=== PATIENT | male | born 1970 ===

== ENCOUNTER 2019-10-19 10:59 | Emergency (ER) | payer OTHER ==
--- NOTE | 2019-10-19 11:08 | EDM.PDOC ---
ED HPI GENERAL MEDICAL PROBLEM - General Chief Complaint: Upper Extremity Injury/Pain Stated Complaint: BROKEN ARM??FELL DOWN STEPS Time Seen by Provider: 10/19/19 11:06 Source of Information: Reports: Patient, Old Records, RN, RN Notes Reviewed History Limitations: Reports: No Limitations - History of Present Illness INITIAL COMMENTS - FREE TEXT/NARRATIVE: Pt presents to ER from home by POV with c/o that he fell down the stairs yesterday (10/18/19) and injured his right shoulder and upper arm. He came to the ER today because the pain did not go away, so he became concerned that he might have broke the bone. Denies any other injury, head injury, LOC, or neck pain. Onset: Sudden Onset Date: 10/18/19 Duration: Constant Location: Reports: Upper Extremity, Right Quality: Reports: Ache Severity: Severe Improves with: Reports: Immobilization Worsens with: Reports: Movement Context: Reports: Other (Fall) Right Shoulder Pain Score (Numeric/FACES): 7 - Related Data Allergies Allergy/AdvReac Type Severity Reaction Status Date / Time No Known Allergies Allergy Verified 10/19/19 11:11 Home Meds: Home Meds levETIRAcetam [Keppra] 500 mg PO DAILY 11/16/14 [History] Past Medical History Neurological History: Reports: Seizure Psychiatric History: Reports: Addiction Social & Family History - Family History Family Medical History: Noncontributory - Alcohol Use Alcohol Use History: Yes Alcohol Use Frequency: Binges - Living Situation & Occupation Living situation: Reports: with Family Occupation: Unemployed Review of Systems - Review of Systems Review Of Systems: Comprehensive ROS is negative, except as noted in HPI. ED EXAM, GENERAL - Physical Exam Exam: See Below Exam Limited By: No Limitations General Appearance: Alert, WD/WN, No Apparent Distress Throat/Mouth: Normal Voice, No Airway Compromise Head: Atraumatic, Normocephalic Neck: Normal Inspection, Non-Tender, Full Range of Motion Respiratory/Chest: No Respiratory Distress Cardiovascular: Normal Peripheral Pulses Peripheral Pulses: 3+: Radial (L), Radial (R) Back Exam: Normal Inspection, Full Range of Motion Extremities: Normal Capillary Refill, Arm Pain (Tender to palpation of anterior Rt shoulder and anterior/medial upper arm with redness, soft tissue swelling, and bruising to the proximal medial upper arm. No visible deformity. Skin is intact.). No: Joint Swelling Neurological: Alert, Oriented, Normal Gait, No Motor/Sensory Deficits Psychiatric: Normal Mood Skin Exam: Warm, Dry, Intact ED TRAUMA EXTREMITY PROCEDURES - Splinting Right Upper Extremity Splint Site: Rt Upper Arm Pre-Procedure NV Status: Normal Post-Procedure NV Status: Normal Splint Material: Fiberglass Splint Design: Sugar Tong Applied & Form Fitted By: Provider Provider Post-Splint Application NV Check: NV Status Normal, Good Position Complications: No Course - Vital Signs Last Recorded V/S: Last Vital Signs Temp 97.1 F 10/19/19 11:08 Pulse 105 H 10/19/19 11:08 Resp 18 10/19/19 11:08 BP 168/111 H 10/19/19 11:08 Pulse Ox 96 10/19/19 11:08 - Orders/Labs/Meds Orders: Active Orders 24 hr Category Date Time Status Peripheral IV Care [RC] . DIRECTED Care 10/19/19 11:46 Active Sodium Chloride 0.9% [Saline Flush] Med 10/19/19 11:46 Active 10 ml FLUSH ASDIRECTED PRN Peripheral IV Insertion Adult [OM.PC] Stat Oth 10/19/19 11:45 Ordered Medication Orders Sodium Chloride (Saline Flush) 10 ml FLUSH ASDIRECTED PRN PRN Reason: Keep Vein Open Meds: Medications Generic Name Dose Route Start Last Admin Trade Name Freq PRN Reason Stop Dose Admin Sodium Chloride 10 ml 10/19/19 11:46 Saline Flush FLUSH ASDIRECTED PRN Keep Vein Open Discontinued Medications Generic Name Dose Route Start Last Admin Trade Name Freq PRN Reason Stop Dose Admin Hydromorphone HCl 1 mg 10/19/19 11:46 Dilaudid IVPUSH 10/19/19 11:47 ONETIME ONE Ketorolac Tromethamine 60 mg 10/19/19 11:09 10/19/19 11:22 Toradol IM 10/19/19 11:10 60 mg ONETIME ONE Administration Ondansetron HCl 4 mg 10/19/19 11:46 Zofran IV 10/19/19 11:47 ONETIME ONE - Radiology Interpretation Free Text/Narrative:: [facility] Final Radiology Report Call: [phone] assistance Online chat: [email or web address] Name: MATTIE OLEARY Age: 49Years M Date: 10/19/2019 SSN: -- : [id number] Study: CR SHOULDER COMP RT Requesting Physician: SHEILA STOVER Images: 2 Addl Studies: Provided Clinical History: Rt shoulder upper arm pain s/p fall down stairs Contrast: Contrast Medium: Contrast Amount: Contrast Method: CONFIDENTIALITY STATEMENT This report is intended only for use by the referring physician, and only in accordance with law. If you received this in error, call [phone]. Page 1 of 1 PROCEDURE INFORMATION: Exam: XR Right Shoulder Exam date and time: 10/19/2019 11:19 AM Age: 49 years old Clinical indication: Injury or trauma; Fall; Initial encounter; Blunt trauma (contusions or hematomas; Shoulder; Right; Additional info: RT shoulder upper arm pain S/P fall down stairs TECHNIQUE: Imaging protocol: XR Right shoulder. Views: 2 or more views. COMPARISON: No relevant prior studies available. FINDINGS: Bones/joints: Multiple views of the right shoulder again demonstrate a moderately offset fracture of the proximal humerus which occurs approximately 4 cm below the humeral neck. There is diffuse decrease in overall bone mineral density. No additional fractures are present. Soft tissues: Moderate soft tissue swelling is present. IMPRESSION: Moderately offset proximal humeral fracture. Thank you for allowing us to participate in the care of your patient. Dictated and Authenticated by: Messi Jurado MD 10/19/2019 11:29 AM Central Time ([place] & [place]) [facility] Final Radiology Report Call: [phone] assistance Online chat: [email or web address] Name: MATTIE OLEARY Age: 49Years M Date: 10/19/2019 SSN: -- : [id number] Study: CR HUMERUS RT Requesting Physician: SHEILA STOVER Images: 2 Addl Studies: Provided Clinical History: Rt shoulder upper arm pain s/p fall down stairs Contrast: Contrast Medium: Contrast Amount: Contrast Method: CONFIDENTIALITY STATEMENT This report is intended only for use by the referring physician, and only in accordance with law. If you received this in error, call [phone]. Page 1 of 1 PROCEDURE INFORMATION: Exam: XR Right Humerus Exam date and time: 10/19/2019 11:18 AM Age: 49 years old Clinical indication: Injury or trauma; Fall; Initial encounter; Blunt trauma (contusions or hematomas; Arm, upper; Right; Additional info: RT shoulder upper arm pain S/P fall down stairs TECHNIQUE: Imaging protocol: XR Right humerus Views: 2 or more views. COMPARISON: No relevant prior studies available. FINDINGS: Bones/joints: A moderately offset fracture is present involving the proximal humerus near the junction of the proximal and middle thirds. Glenohumeral elation ship appears to be intact. Elbow joint appear Soft tissues: Moderate grade soft tissue swelling is present. IMPRESSION: Moderately offset proximal humerus fracture. Thank you for allowing us to participate in the care of your patient. Dictated and Authenticated by: Messi Jurado MD 10/19/2019 11:28 AM Central Time ([place] & [place]) - Re-Assessments/Exams Free Text/Narrative Re-Assessment/Exam: 10/19/19 11:52 Dr. Melendrez consulted via [employer] Call and accepts the pt to be transferred to the ER for admission. Departure - Departure Time of Disposition: 11:53 Disposition: DC/Tfer to Acute Hospital 02 Condition: Fair Clinical Impression: Displaced comminuted fracture of shaft of humerus, right arm, initial encounter for closed fracture - Discharge Information *PRESCRIPTION DRUG MONITORING PROGRAM REVIEWED*: Not Applicable *COPY OF PRESCRIPTION DRUG MONITORING REPORT IN PATIENT DANNIE: Not Applicable Forms: ED Department Discharge, Interfacility Transfer [facility] Sepsis Event Note (ED) - Focused Exam Vital Signs: Vital Signs Temp Pulse Resp BP Pulse Ox 10/19/19 11:08 97.1 F 105 H 18 168/111 H 96 - My Orders Last 24 Hours: My Active Orders 10/19/19 11:45 Peripheral IV Insertion Adult [OM.PC] Stat 10/19/19 11:46 Peripheral IV Care [RC] . DIRECTED Sodium Chloride 0.9% [Saline Flush] 10 ml FLUSH ASDIRECTED PRN - Assessment/Plan Last 24 Hours: My Active Orders 10/19/19 11:45 Peripheral IV Insertion Adult [OM.PC] Stat 10/19/19 11:46 Peripheral IV Care [RC] . DIRECTED Sodium Chloride 0.9% [Saline Flush] 10 ml FLUSH ASDIRECTED PRN
[2019-10-19] MEDS ORDERED: Ketorolac 30 MG/ML SDV IM ONE (11:09)
[2019-10-19 11:11] VITALS: BP 168/111; PULSE 105
--- NOTE | 2019-10-19 11:28 | CR ---
PROCEDURE INFORMATION: Exam: XR Right Humerus Exam date and time: 10/19/2019 11:18 AM Age: 49 years old Clinical indication: Injury or trauma; Fall; Initial encounter; Blunt trauma (contusions or hematomas; Arm, upper; Right; Additional info: RT shoulder upper arm pain S/P fall down stairs TECHNIQUE: Imaging protocol: XR Right humerus Views: 2 or more views. COMPARISON: No relevant prior studies available. FINDINGS: Bones/joints: A moderately offset fracture is present involving the proximal humerus near the junction of the proximal and middle thirds. Glenohumeral elation ship appears to be intact. Elbow joint appear Soft tissues: Moderate grade soft tissue swelling is present. IMPRESSION: Moderately offset proximal humerus fracture.
--- NOTE | 2019-10-19 11:29 | CR ---
PROCEDURE INFORMATION: Exam: XR Right Shoulder Exam date and time: 10/19/2019 11:19 AM Age: 49 years old Clinical indication: Injury or trauma; Fall; Initial encounter; Blunt trauma (contusions or hematomas; Shoulder; Right; Additional info: RT shoulder upper arm pain S/P fall down stairs TECHNIQUE: Imaging protocol: XR Right shoulder. Views: 2 or more views. COMPARISON: No relevant prior studies available. FINDINGS: Bones/joints: Multiple views of the right shoulder again demonstrate a moderately offset fracture of the proximal humerus which occurs approximately 4 cm below the humeral neck. There is diffuse decrease in overall bone mineral density. No additional fractures are present. Soft tissues: Moderate soft tissue swelling is present. IMPRESSION: Moderately offset proximal humeral fracture.
[2019-10-19] MEDS ORDERED: HYDROmorphone 1 MG/ML Syringe IVPUSH ONE (11:46)
[2019-10-19] MEDS ORDERED: Sodium Chloride 0.9% 10 ML Syringe FLUSH PRN (11:46)
[2019-10-19] MEDS ORDERED: Ondansetron 4 MG/2 ML SDV IV ONE (11:46)
== END 2019-10-19 12:36 ==
LOC: DL.ED 10:59
DX: S42.201A Unspecified fracture of upper end of right humerus, initial encounter for closed fracture (principal); S42.351A Displaced comminuted fracture of shaft of humerus, right arm, initial encounter for closed fracture; S40.021A Contusion of right upper arm, initial encounter; R56.9 Unspecified convulsions; Z79.899 Other long term (current) drug therapy; W10.9XXA Fall (on) (from) unspecified stairs and steps, initial encounter
CPT/HCPCS: 29105; 73030; 73060; 96372; 96374; 96375; 99283; J1170; J1885; J2405

== ENCOUNTER 2020-05-20 21:07 | Observation (INO) | payer MEDICAID, OTHER ==
[~2020-05-20 21:07] MED LIST: MVI, Adult with Vitamin K 10 ML, Folic Acid 1 MG, Thiamine 100 MG in Lactated Ringers 1... IV ONE
--- NOTE | 2020-05-20 21:12 | EDM.PDOC ---
ED HPI GENERAL MEDICAL PROBLEM - General Stated Complaint: AMBULANCE Time Seen by Provider: 05/20/20 21:07 Source of Information: Reports: Patient, EMS, EMS Notes Reviewed, RN, RN Notes Reviewed History Limitations: Reports: Intoxication - History of Present Illness INITIAL COMMENTS - FREE TEXT/NARRATIVE: Patient is a 49-year-old male who presents to ER per [facility] with complaint of seizure. Upon arrival patient states he had seizures today. States he has been drinking for a day. Patient mumbles and is difficult to understand from time to time. Patient complains of pain all over his body. States when he had a seizure today he did fall hit his head, and was knocked out. Patient complains of pain to the right arm. States he fell down some steps less than a year ago and had surgery on that right arm. Patient states he has a seizure disorder, takes Dilantin. He states it has been "few days" since he is taken his Dilantin. Patient denies any other health problems. Denies drinking on a daily basis. EMS reported no witnessed seizures. When complaining of pain he complains of pain to the right arm, chest, abdomen upon palpation, legs bilaterally, head. Onset: Today Generalized Pain Score (Numeric/FACES): 6 - Related Data Allergies Allergy/AdvReac Type Severity Reaction Status Date / Time No Known Allergies Allergy Verified 05/20/20 21:22 Home Meds: Home Meds levETIRAcetam [Keppra] 500 mg PO DAILY 11/16/14 [History] Past Medical History - Past Health History Medical/Surgical History: Denies Medical/Surgical History Neurological History: Reports: Seizure Psychiatric History: Reports: Addiction Social & Family History - Family History Family Medical History: No Pertinent Family History - Caffeine Use Caffeine Use: Reports: None - Living Situation & Occupation Living situation: Reports: with Family Occupation: Unemployed ED ROS GENERAL - Review of Systems Review Of Systems: Comprehensive ROS is negative, except as noted in HPI. - Physical Exam Exam: See Below Exam Limited By: Intoxication General Appearance: Lethargic, Moderate Distress Eye Exam: Bilateral Eye: EOMI, PERRL (4 sluggish ) Ears: Normal External Exam, Hearing Grossly Normal Nose: Normal Inspection Throat/Mouth: Normal Inspection, Normal Voice, No Airway Compromise Head Exam: Facial Swelling (Moderate hematoma to the forehead) Neck: Normal Inspection, Supple, Non-Tender, Full Range of Motion Respiratory/Chest: No Respiratory Distress, No Accessory Muscle Use, Chest Non- Tender, Decreased Breath Sounds Cardiovascular: Normal Peripheral Pulses, Regular Rate, Rhythm, No Edema, No Gallop, No JVD, No Murmur, No Rub GI/Abdominal: Normal Bowel Sounds, No Organomegaly, No Distention, No Abnormal Bruit, No Mass, Rigid, Tender (Male) Exam: Deferred Rectal (Males) Exam: Deferred Neuro Exam (Abbreviated): Inattentive, Slow to Respond, Memory Loss Remote Events, Memory Loss Recent Events Back Exam: Normal Inspection Extremities: Normal Inspection, Normal Range of Motion, Non-Tender, No Pedal Edema, Normal Capillary Refill Psychiatric: Normal Affect, Normal Mood Skin Exam: Warm, Dry, Intact, Normal Color, No Rash #1 Interpretation EKG Date: 05/20/20 Time: 21:17 Rhythm: NSR Rate (Beats/Min): 61 [place]: Normal P-Wave: Present QRS: Normal ST-T: Normal QT: Normal Comparison: No Change Course - Vital Signs Last Recorded V/S: Last Vital Signs Temp 98.1 F 05/20/20 21:00 Pulse 72 05/20/20 21:00 Resp 17 05/20/20 21:00 BP 154/100 H 05/20/20 21:00 Pulse Ox 97 05/20/20 21:00 - Orders/Labs/Meds Orders: Active Orders 24 hr Category Date Time Status Admission Diagnosis [ADT] Stat ADT 05/20/20 22:27 Ordered Admission Status [Patient Status] [ADT] Routine ADT 05/20/20 22:27 Active EKG Documentation Completion [RC] STAT Care 05/20/20 21:03 Active Labs: Laboratory Tests 05/20/20 05/20/20 05/20/20 Range/Units 21:08 21:16 21:16 WBC 6.0 (5.0-10.0) 10^3/uL RBC 4.68 (4.6-6.2) 10^6/uL Hgb 13.5 L (14.0-18.0) g/dL Hct 41.1 (40.0-54.0) % MCV 87.8 (80-100) fL MCH 28.8 (27.0-34.0) pg MCHC 32.8 L (33.0-35.0) g/dL Plt Count 221 (150-450) 10^3/uL Neut % (Auto) 54.6 (42.2-75.2) % Lymph % (Auto) 34.1 (20.5-50.1) % [place] % (Auto) 9.4 H (2-8) % Eos % (Auto) 1.2 (1.0-3.0) % Baso % (Auto) 0.7 (0.0-1.0) % PT 9.9 (9.0-12.0) SEC INR 1.0 (0.9-1.2) Sodium (136-145) mmol/L Potassium (3.5-5.1) mmol/L Chloride (98-107) mmol/L Carbon Dioxide (21-32) mmol/L Anion Gap (7-13) mEq/L BUN (7-18) mg/dL Creatinine (0.70-1.30) mg/dL Est Cr Clr Drug Dosing Estimated GFR (MDRD) BUN/Creatinine Ratio (No establ ref range) Glucose (70-99) mg/dL Calcium (8.5-10.1) mg/dL Magnesium (1.8-2.4) mg/dL Total Bilirubin (0.2-1.0) mg/dL AST (15-37) U/L ALT (16-63) U/L Alkaline Phosphatase (46-116) U/L C-Reactive Protein (0.0-0.9) mg/dL Total Protein (6.4-8.2) g/dL Albumin (3.4-5.0) g/dL Globulin Albumin/Globulin Ratio Urine Color (YELLOW) Urine Appearance (CLEAR) Urine pH (5.0-9.0) Ur Specific [place] (1.005-1.030) Urine Protein (NEGATIVE) Urine Glucose (UA) (NEGATIVE) Urine Ketones (NEGATIVE) Urine Occult Blood (NEGATIVE) Urine Nitrite (NEGATIVE) Urine Bilirubin (NEGATIVE) Urine Urobilinogen (0.2-1.0) mg/dL Ur Leukocyte Esterase (NEGATIVE) Urine Opiates Screen (NEGATIVE) Ur Oxycodone Screen (NEGATIVE) Urine Methadone Screen (NEGATIVE) Ur Barbiturates Screen (NEGATIVE) Phenytoin (10-20 (Therapeutic)) ug/mL U Tricyclic Antidepress (NEGATIVE) Ur Phencyclidine Scrn (NEGATIVE) Ur Amphetamine Screen (NEGATIVE) U Methamphetamines Scrn (NEGATIVE) Urine MDMA Screen (NEGATIVE) U Benzodiazepines Scrn (NEGATIVE) Urine Cocaine Screen (NEGATIVE) U Marijuana (THC) Screen (NEGATIVE) Ethyl Alcohol (0) mg/dL Influenza Type A RNA Negative (NEGATIVE) Influenza Type B RNA Negative (NEGATIVE) SARS-CoV-2 RNA (SOTERO) Negative (NEGATIVE) 05/20/20 05/20/20 05/20/20 Range/Units 21:16 21:16 21:45 WBC (5.0-10.0) 10^3/uL RBC (4.6-6.2) 10^6/uL Hgb (14.0-18.0) g/dL Hct (40.0-54.0) % MCV (80-100) fL MCH (27.0-34.0) pg MCHC (33.0-35.0) g/dL Plt Count (150-450) 10^3/uL Neut % (Auto) (42.2-75.2) % Lymph % (Auto) (20.5-50.1) % [place] % (Auto) (2-8) % Eos % (Auto) (1.0-3.0) % Baso % (Auto) (0.0-1.0) % PT (9.0-12.0) SEC INR (0.9-1.2) Sodium 143 (136-145) mmol/L Potassium 3.4 L (3.5-5.1) mmol/L Chloride 104 (98-107) mmol/L Carbon Dioxide 26 (21-32) mmol/L Anion Gap 16.4 H (7-13) mEq/L BUN 10 (7-18) mg/dL Creatinine 0.92 (0.70-1.30) mg/dL Est Cr Clr Drug Dosing TNP Estimated GFR (MDRD) > 60 BUN/Creatinine Ratio 10.9 (No establ ref range) Glucose 93 (70-99) mg/dL Calcium 7.9 L (8.5-10.1) mg/dL Magnesium 2.0 (1.8-2.4) mg/dL Total Bilirubin 0.2 (0.2-1.0) mg/dL AST 62 H (15-37) U/L ALT 75 H (16-63) U/L Alkaline Phosphatase 93 (46-116) U/L C-Reactive Protein < 0.2 (0.0-0.9) mg/dL Total Protein 7.7 (6.4-8.2) g/dL Albumin 3.8 (3.4-5.0) g/dL Globulin 3.9 Albumin/Globulin Ratio 1.0 Urine Color (YELLOW) Urine Appearance (CLEAR) Urine pH (5.0-9.0) Ur Specific [place] (1.005-1.030) Urine Protein (NEGATIVE) Urine Glucose (UA) (NEGATIVE) Urine Ketones (NEGATIVE) Urine Occult Blood (NEGATIVE) Urine Nitrite (NEGATIVE) Urine Bilirubin (NEGATIVE) Urine Urobilinogen (0.2-1.0) mg/dL Ur Leukocyte Esterase (NEGATIVE) Urine Opiates Screen Negative (NEGATIVE) Ur Oxycodone Screen Negative (NEGATIVE) Urine Methadone Screen Negative (NEGATIVE) Ur Barbiturates Screen Negative (NEGATIVE) Phenytoin < 1 L (10-20 (Therapeutic)) ug/mL U Tricyclic Antidepress Negative (NEGATIVE) Ur Phencyclidine Scrn Negative (NEGATIVE) Ur Amphetamine Screen Negative (NEGATIVE) U Methamphetamines Scrn Negative (NEGATIVE) Urine MDMA Screen Negative (NEGATIVE) U Benzodiazepines Scrn Negative (NEGATIVE) Urine Cocaine Screen Negative (NEGATIVE) U Marijuana (THC) Screen Positive H (NEGATIVE) Ethyl Alcohol 383 (0) mg/dL Influenza Type A RNA (NEGATIVE) Influenza Type B RNA (NEGATIVE) SARS-CoV-2 RNA (SOTERO) (NEGATIVE) 05/20/20 Range/Units 21:45 WBC (5.0-10.0) 10^3/uL RBC (4.6-6.2) 10^6/uL Hgb (14.0-18.0) g/dL Hct (40.0-54.0) % MCV (80-100) fL MCH (27.0-34.0) pg MCHC (33.0-35.0) g/dL Plt Count (150-450) 10^3/uL Neut % (Auto) (42.2-75.2) % Lymph % (Auto) (20.5-50.1) % [place] % (Auto) (2-8) % Eos % (Auto) (1.0-3.0) % Baso % (Auto) (0.0-1.0) % PT (9.0-12.0) SEC INR (0.9-1.2) Sodium (136-145) mmol/L Potassium (3.5-5.1) mmol/L Chloride (98-107) mmol/L Carbon Dioxide (21-32) mmol/L Anion Gap (7-13) mEq/L BUN (7-18) mg/dL Creatinine (0.70-1.30) mg/dL Est Cr Clr Drug Dosing Estimated GFR (MDRD) BUN/Creatinine Ratio (No establ ref range) Glucose (70-99) mg/dL Calcium (8.5-10.1) mg/dL Magnesium (1.8-2.4) mg/dL Total Bilirubin (0.2-1.0) mg/dL AST (15-37) U/L ALT (16-63) U/L Alkaline Phosphatase (46-116) U/L C-Reactive Protein (0.0-0.9) mg/dL Total Protein (6.4-8.2) g/dL Albumin (3.4-5.0) g/dL Globulin Albumin/Globulin Ratio Urine Color Yellow (YELLOW) Urine Appearance Clear (CLEAR) Urine pH 5.5 (5.0-9.0) Ur Specific [place] <= 1.005 (1.005-1.030) Urine Protein Negative (NEGATIVE) Urine Glucose (UA) Negative (NEGATIVE) Urine Ketones Negative (NEGATIVE) Urine Occult Blood Negative (NEGATIVE) Urine Nitrite Negative (NEGATIVE) Urine Bilirubin Negative (NEGATIVE) Urine Urobilinogen 0.2 (0.2-1.0) mg/dL Ur Leukocyte Esterase Negative (NEGATIVE) Urine Opiates Screen (NEGATIVE) Ur Oxycodone Screen (NEGATIVE) Urine Methadone Screen (NEGATIVE) Ur Barbiturates Screen (NEGATIVE) Phenytoin (10-20 (Therapeutic)) ug/mL U Tricyclic Antidepress (NEGATIVE) Ur Phencyclidine Scrn (NEGATIVE) Ur Amphetamine Screen (NEGATIVE) U Methamphetamines Scrn (NEGATIVE) Urine MDMA Screen (NEGATIVE) U Benzodiazepines Scrn (NEGATIVE) Urine Cocaine Screen (NEGATIVE) U Marijuana (THC) Screen (NEGATIVE) Ethyl Alcohol (0) mg/dL Influenza Type A RNA (NEGATIVE) Influenza Type B RNA (NEGATIVE) SARS-CoV-2 RNA (SOTERO) (NEGATIVE) Meds: Medications Discontinued Medications Generic Name Dose Route Start Last Admin Trade Name Rosa Elena PRN Reason Stop Dose Admin Multivitamins/Minerals 10 ml/ 1,011.2 mls @ 999 mls/hr 05/20/20 21:05 05/20/20 21:15 Folic Acid 1 mg/ Thiamine HCl IV 05/20/20 22:05 999 mls/hr 100 mg/ Lactated Ringer's ONETIME ONE Administration Phenytoin Sodium 1,000 mg/ 120 mls @ 240 mls/hr 05/20/20 21:59 Sodium Chloride IV 05/20/20 22:00 ONETIME ONE - Radiology Interpretation Free Text/Narrative:: CT head wo contrast: PROCEDURE INFORMATION: Exam: CT Head Without Contrast Exam date and time: 05/20/2020 9:40 PM Age: 49 years old Clinical indication: Other: ETOH; Patient HX: He says hes had seizures and pain all over body from falls; Additional info: Intoxication, C/O pain in chest, abdomen, right arm TECHNIQUE: Imaging protocol: Computed tomography of the head without contrast. Radiation optimization: All CT scans at this facility use at least one of these dose optimization techniques: automated exposure control; mA and/or kV adjustment per patient size (includes targeted exams where dose is matched to clinical indication); or iterative reconstruction. COMPARISON: No relevant prior studies available. FINDINGS: Brain: No acute infarct or hemorrhage. Cerebral ventricles: No ventriculomegaly. Bones/joints: No calvarial or skull base fracture. Paranasal sinuses: Paranasal sinuses are clear. No air-fluid level. Mastoid air cells: Visualized mastoid air cells are clear. Soft tissues: Unremarkable. IMPRESSION: 1. No calvarial or skull base fracture. 2. No acute infarct or hemorrhage. Thank you for allowing us to participate in the care of your patient. Dictated and Authenticated by: Dre Olivarez DO 05/20/2020 10:08 PM Central Time ([place] & [place]) CT C Spine wo contrast: PROCEDURE INFORMATION: Exam: CT Cervical Spine Without Contrast Exam date and time: 05/20/2020 9:40 PM Age: 49 years old Clinical indication: Other: ETOH; Additional info: Intoxication, C/O pain in chest, abdomen, right arm TECHNIQUE: Imaging protocol: Computed tomography images of the cervical spine without con trast. Radiation optimization: All CT scans at this facility use at least one of these dose optimization techniques: automated exposure control; mA and/or kV adjustment per patient size (includes targeted exams where dose is matched to clinical indication); or iterative reconstruction. COMPARISON: No relevant prior studies available. FINDINGS: Bones/joints: There is normal vertebral body alignment. There are normal vertebral body heights. The dens is intact. The lateral masses of C1 are symmetric. Discs/Spinal canal/Neural foramina: Craniocervical articulation is normal. There is mild diffuse cervical disc space narrowing. Lungs: Lung apices are normal. Soft tissues: Unremarkable. IMPRESSION: Mild degenerative disc and joint disease but no fracture. STATEMENT This report is intended only for use by the referring physician, and only in accordance with law. If you received this in error, call [phone]. Page 2 of 2 Thank you for allowing us to participate in the care of your patient. Dictated and Authenticated by: Dre Olivarez DO 05/20/2020 10:12 PM Central Time ([place] & [place]) CT chest/abdomen/pelvis wo contrast: PROCEDURE INFORMATION: Exam: CT Chest Without Contrast; Diagnostic Exam date and time: 05/20/2020 9:40 PM Age: 49 years old Clinical indication: Other: Pain; Additional info: Intoxication, C/O pain in chest, abdomen, right arm TECHNIQUE: Imaging protocol: Diagnostic computed tomography of the chest without contrast. Radiation optimization: All CT scans at this facility use at least one of these dose optimization techniques: automated exposure control; mA and/or kV adjustment per patient size (includes targeted exams where dose is matched to clinical indication); or iterative reconstruction. COMPARISON: No relevant prior studies available. FINDINGS: Lungs: The lungs are clear. There are minor subpleural atelectatic densities in the dependent portions of the lungs. Pleural spaces: No pleural effusion. No pneumothorax. Heart: The heart is not enlarged. Aorta: There is no thoracic aortic aneurysm. Lymph nodes: There is no evidence of lymphadenopathy. Bones/joints: There is no evidence of acute fracture. Soft tissues: There is no soft tissue abnormality seen. IMPRESSION: No acute findings. PROCEDURE INFORMATION: Exam: CT Abdomen And Pelvis Without Contrast Exam date and time: 05/20/2020 9:40 PM Age: 49 years old Clinical indication: Other: Pain; Additional info: Intoxication, C/O pain in chest, abdomen, right arm TECHNIQUE: Imaging protocol: Computed tomography of the abdomen and pelvis without contrast. Radiation optimization: All CT scans at this facility use at least one of these dose optimization techniques: automated exposure control; mA and/or kV adjustment per patient size (includes targeted exams where dose is matched to clinical indication); or iterative reconstruction. COMPARISON: No relevant prior studies available. FINDINGS: Liver: The liver is normal. Gallbladder and bile ducts: The gallbladder is normal. There is no evidence of biliary ductal dilation. Pancreas: The pancreas is normal. Spleen: The spleen is normal. Adrenal glands: The adrenal glands are normal. Kidneys and ureters: The kidneys are normal. No hydronephrosis. No visible calculi. Stomach and bowel: There are scattered prominent fluid-filled small bowel loops in a nonspecific pattern. Some form of nonspecific enteritis may be present.There is no evidence of colitis/diverticulitis. Appendix: The appendix is not specifically identified. There is no evidence of fluid or inflammatory stranding at the base of the cecum. Intraperitoneal space: No free intraperitoneal air. No free intraperitoneal fluid. Vasculature: There is no aortic aneurysm. There are numerous benign phleboliths in the pelvis. Lymph nodes: There is no adenopathy. Urinary bladder: The bladder is moderately distended. Reproductive: Moderate right hydrocele suspect. Bones/joints: No acute bony findings are identified. Soft tissues: There is a small fat containing right inguinal hernia. No bowel loops are involved. There is a moderate fat containing left inguinal hernia. No bowel loops are involved. There is no acute soft tissue abnormality seen. IMPRESSION: 1. Question nonspecific enteritis. Potential differential diagnoses include infectious processes, inflammatory processes, as well as ischemic etiologies. 2. Moderate urinary bladder distention. Etiology indeterminate. 3. Moderate right hydrocele 4. Other findings as described Thank you for allowing us to participate in the care of your patient. Dictated and Authenticated by: Supa Jackson MD 05/20/2020 10:11 PM Central Time ([place] & [place]) Right shoulder xray: PROCEDURE INFORMATION: Exam: XR Right Shoulder Exam date and time: 05/20/2020 10:05 PM Age: 49 years old Clinical indication: Other: Etoh/pain; Additional info: Intoxication, C/O pain in chest, abdomen, right arm TECHNIQUE: Imaging protocol: XR Right shoulder. Views: 1 view. COMPARISON: No relevant prior studies available. FINDINGS: Bones/joints: There is intact buttress plate and screw fixation of a healed proximal humeral fracture. No grossly displaced fracture or dislocation. Soft tissues: Normal. IMPRESSION: No definite fracture or dislocation. However, study is limited without an orthogonal view. Thank you for allowing us to participate in the care of your patient. Dictated and Authenticated by: Dre Olivarez DO 05/20/2020 10:13 PM Central Time ([place] & [place]) See rad report - Re-Assessments/Exams Free Text/Narrative Re-Assessment/Exam: 05/20/20 22:43 Discussed patient case with Dr. Moses who agreed to accept the patient for observation admission. Departure - Departure Time of Disposition: 22:42 Disposition: Refer to Observation Condition: Fair, Undetermined Clinical Impression: Alcohol abuse, Seizure Fall Qualifiers: Encounter type: initial encounter Qualified Code(s): W19.XXXA - Unspecified fall, initial encounter - Discharge Information *PRESCRIPTION DRUG MONITORING PROGRAM REVIEWED*: No *COPY OF PRESCRIPTION DRUG MONITORING REPORT IN PATIENT DANNIE: No Sepsis Event Note (ED) - Focused Exam Vital Signs: Vital Signs Temp Pulse Resp BP Pulse Ox 05/20/20 21:00 98.1 F 72 17 154/100 H 97 - My Orders Last 24 Hours: My Active Orders 05/20/20 21:03 EKG Documentation Completion [RC] STAT 05/20/20 22:27 Admission Diagnosis [ADT] Stat Admission Status [Patient Status] [ADT] Routine - Assessment/Plan Last 24 Hours: My Active Orders 05/20/20 21:03 EKG Documentation Completion [RC] STAT 05/20/20 22:27 Admission Diagnosis [ADT] Stat Admission Status [Patient Status] [ADT] Routine
[2020-05-20 21:46] LABS: ANION GAP 16.4 mEq/L (7-13); CHLORIDE,CL 104 mmol/L (98-107); SODIUM,NA 143 mmol/L (136-145)
[2020-05-20] MEDS ORDERED: Phenytoin 1,000 MG in Sodium Chloride 0.9% 100 ML IV ONE (21:59)
[2020-05-20 22:05] LABS: CORONAVIRUS COVID-19 NAA NEGATIVE (NEGATIVE)
--- NOTE | 2020-05-20 22:08 | CT ---
PROCEDURE INFORMATION: Exam: CT Head Without Contrast Exam date and time: 05/20/2020 9:40 PM Age: 49 years old Clinical indication: Other: ETOH; Patient HX: He says hes had seizures and pain all over body from falls; Additional info: Intoxication, C/O pain in chest, abdomen, right arm TECHNIQUE: Imaging protocol: Computed tomography of the head without contrast. Radiation optimization: All CT scans at this facility use at least one of these dose optimization techniques: automated exposure control; mA and/or kV adjustment per patient size (includes targeted exams where dose is matched to clinical indication); or iterative reconstruction. COMPARISON: No relevant prior studies available. FINDINGS: Brain: No acute infarct or hemorrhage. Cerebral ventricles: No ventriculomegaly. Bones/joints: No calvarial or skull base fracture. Paranasal sinuses: Paranasal sinuses are clear. No air-fluid level. Mastoid air cells: Visualized mastoid air cells are clear. Soft tissues: Unremarkable. IMPRESSION: 1. No calvarial or skull base fracture. 2. No acute infarct or hemorrhage.
--- NOTE | 2020-05-20 22:12 | CT ---
PROCEDURE INFORMATION: Exam: CT Chest Without Contrast; Diagnostic Exam date and time: 05/20/2020 9:40 PM Age: 49 years old Clinical indication: Other: Pain; Additional info: Intoxication, C/O pain in chest, abdomen, right arm TECHNIQUE: Imaging protocol: Diagnostic computed tomography of the chest without contrast. Radiation optimization: All CT scans at this facility use at least one of these dose optimization techniques: automated exposure control; mA and/or kV adjustment per patient size (includes targeted exams where dose is matched to clinical indication); or iterative reconstruction. COMPARISON: No relevant prior studies available. FINDINGS: Lungs: The lungs are clear. There are minor subpleural atelectatic densities in the dependent portions of the lungs. Pleural spaces: No pleural effusion. No pneumothorax. Heart: The heart is not enlarged. Aorta: There is no thoracic aortic aneurysm. Lymph nodes: There is no evidence of lymphadenopathy. Bones/joints: There is no evidence of acute fracture. Soft tissues: There is no soft tissue abnormality seen. IMPRESSION: No acute findings. PROCEDURE INFORMATION: Exam: CT Abdomen And Pelvis Without Contrast Exam date and time: 05/20/2020 9:40 PM Age: 49 years old Clinical indication: Other: Pain; Additional info: Intoxication, C/O pain in chest, abdomen, right arm TECHNIQUE: Imaging protocol: Computed tomography of the abdomen and pelvis without contrast. Radiation optimization: All CT scans at this facility use at least one of these dose optimization techniques: automated exposure control; mA and/or kV adjustment per patient size (includes targeted exams where dose is matched to clinical indication); or iterative reconstruction. COMPARISON: No relevant prior studies available. FINDINGS: Liver: The liver is normal. Gallbladder and bile ducts: The gallbladder is normal. There is no evidence of biliary ductal dilation. Pancreas: The pancreas is normal. Spleen: The spleen is normal. Adrenal glands: The adrenal glands are normal. Kidneys and ureters: The kidneys are normal. No hydronephrosis. No visible calculi. Stomach and bowel: There are scattered prominent fluid-filled small bowel loops in a nonspecific pattern. Some form of nonspecific enteritis may be present.There is no evidence of colitis/diverticulitis. Appendix: The appendix is not specifically identified. There is no evidence of fluid or inflammatory stranding at the base of the cecum. Intraperitoneal space: No free intraperitoneal air. No free intraperitoneal fluid. Vasculature: There is no aortic aneurysm. There are numerous benign phleboliths in the pelvis. Lymph nodes: There is no adenopathy. Urinary bladder: The bladder is moderately distended. Reproductive: Moderate right hydrocele suspect. Bones/joints: No acute bony findings are identified. Soft tissues: There is a small fat containing right inguinal hernia. No bowel loops are involved. There is a moderate fat containing left inguinal hernia. No bowel loops are involved. There is no acute soft tissue abnormality seen. IMPRESSION: 1. Question nonspecific enteritis. Potential differential diagnoses include infectious processes, inflammatory processes, as well as ischemic etiologies. 2. Moderate urinary bladder distention. Etiology indeterminate. 3. Moderate right hydrocele 4. Other findings as described
--- NOTE | 2020-05-20 22:12 | CT ---
PROCEDURE INFORMATION: Exam: CT Cervical Spine Without Contrast Exam date and time: 05/20/2020 9:40 PM Age: 49 years old Clinical indication: Other: ETOH; Additional info: Intoxication, C/O pain in chest, abdomen, right arm TECHNIQUE: Imaging protocol: Computed tomography images of the cervical spine without contrast. Radiation optimization: All CT scans at this facility use at least one of these dose optimization techniques: automated exposure control; mA and/or kV adjustment per patient size (includes targeted exams where dose is matched to clinical indication); or iterative reconstruction. COMPARISON: No relevant prior studies available. FINDINGS: Bones/joints: There is normal vertebral body alignment. There are normal vertebral body heights. The dens is intact. The lateral masses of C1 are symmetric. Discs/Spinal canal/Neural foramina: Craniocervical articulation is normal. There is mild diffuse cervical disc space narrowing. Lungs: Lung apices are normal. Soft tissues: Unremarkable. IMPRESSION: Mild degenerative disc and joint disease but no fracture.
--- NOTE | 2020-05-20 22:13 | CR ---
PROCEDURE INFORMATION: Exam: XR Right Shoulder Exam date and time: 05/20/2020 10:05 PM Age: 49 years old Clinical indication: Other: Etoh/pain; Additional info: Intoxication, C/O pain in chest, abdomen, right arm TECHNIQUE: Imaging protocol: XR Right shoulder. Views: 1 view. COMPARISON: No relevant prior studies available. FINDINGS: Bones/joints: There is intact buttress plate and screw fixation of a healed proximal humeral fracture. No grossly displaced fracture or dislocation. Soft tissues: Normal. IMPRESSION: No definite fracture or dislocation. However, study is limited without an orthogonal view.
[2020-05-20] MEDS ORDERED: Bisacodyl 5 MG Tab PO PRN (23:26)
[2020-05-20] MEDS ORDERED: Docusate Sodium 100 MG Cap PO PRN (23:26)
[2020-05-20] MEDS ORDERED: Acetaminophen 325 MG Tab PO PRN (23:26)
[2020-05-20] MEDS ORDERED: Ondansetron 4 MG/2 ML SDV IVPUSH PRN (23:26)
[2020-05-20] MEDS ORDERED: LORazepam 0.5 MG Tab PO PRN (23:30)
--- NOTE | 2020-05-20 23:40 | PCM.HP ---
H&P History of Present Illness - General Date of Service: 05/20/20 Admit Problem/Dx: Admission Diagnosis/Problem Admission Diagnosis/Problem Seizure Source of Information: Patient, Provider (ER) History Limitations: Reports: Intoxication - History of Present Illness Onset of Symptoms: Reports: Today Generalized Pain Score (Numeric/FACES): 6 - Related Data Allergies/Adverse Reactions: Allergies Allergy/AdvReac Type Severity Reaction Status Date / Time No Known Allergies Allergy Verified 05/20/20 21:22 Home Medications: Home Meds Phenytoin [Dilantin] 600 mg PO TID 05/20/20 [History] Past Medical History - Past Health History Medical/Surgical History: Denies Medical/Surgical History Neurological History: Reports: Seizure Psychiatric History: Reports: Addiction Social & Family History - Family History Family Medical History: No Pertinent Family History - Tobacco Use Tobacco Use Status *Q: Current Status Unknown Second Hand Smoke Exposure: No - Caffeine Use Caffeine Use: Reports: Other Other Caffeine Use: unable to obtain - Alcohol Use Date of Last Drink: 05/20/20 - Recreational Drug Use Recreational Drug Use Frequency: Patient Refuses To Answer - Living Situation & Occupation Living situation: Reports: with Family Occupation: Unemployed H&P Review of Systems - Review of Systems: Review Of Systems: Unable To Obtain Reason Not Obtained: Pt is intoxicated Free Text/Narrative: Patient is a 49-year-old male who presented to ER by ambulance service with complaint of seizure. Patient states he had seizures today. States he has been drinking for a day. Patient mumbles and is difficult to understand from time to time. Patient complains of pain all over his body. States when he had a seizure today he did fall hit his head, and was knocked out. Patient complains of pain to the right arm and leg knee pain. States he fell down some steps less than a year ago and had surgery on that right arm. Patient states he has a seizure disorder, takes Dilantin. He states it has been "few days" since he is taken his Dilantin. Patient denies any other health problems. Denies drinking on a daily basis. EMS reported no witnessed seizures. When complaining of pain he complains of pain to the right arm, chest, abdomen upon palpation, legs bilaterally, head. Pt was admitted for observation due to intoxication. Exam - Exam Exam: See Below - Vital Signs Vital Signs: Last Vital Signs Temp 98.1 F 05/20/20 21:00 Pulse 72 05/20/20 21:00 Resp 17 05/20/20 21:00 BP 154/100 H 05/20/20 21:00 Pulse Ox 97 05/20/20 21:00 Weight: 158 lb 6.4 oz - Exam Quality Assessment: No: Supplemental Oxygen General: Alert, Other (intoxicated) HEENT: EOMI Neck: Supple Lungs: Clear to Auscultation, Normal Respiratory Effort Cardiovascular: Regular Rate, Regular Rhythm GI/Abdominal Exam: Soft Rectal (Males) Exam: Deferred Back Exam: Normal Inspection Extremities: Normal Inspection, Normal Range of Motion Neurological: Other (intoxicated) Neuro Extensive - Mental Status: Alert. No: Oriented x3 Neuro Extensive - Motor, Sensory, Reflexes: Other (moving all ext.s) - Patient Data Lab Results Last 24 hrs: Laboratory Results - last 24 hr 05/20/20 05/20/20 05/20/20 Range/Units 21:08 21:16 21:16 WBC 6.0 (5.0-10.0) 10^3/uL RBC 4.68 (4.6-6.2) 10^6/uL Hgb 13.5 L (14.0-18.0) g/dL Hct 41.1 (40.0-54.0) % MCV 87.8 (80-100) fL MCH 28.8 (27.0-34.0) pg MCHC 32.8 L (33.0-35.0) g/dL Plt Count 221 (150-450) 10^3/uL Neut % (Auto) 54.6 (42.2-75.2) % Lymph % (Auto) 34.1 (20.5-50.1) % Greene % (Auto) 9.4 H (2-8) % Eos % (Auto) 1.2 (1.0-3.0) % Baso % (Auto) 0.7 (0.0-1.0) % PT 9.9 (9.0-12.0) SEC INR 1.0 (0.9-1.2) Sodium (136-145) mmol/L Potassium (3.5-5.1) mmol/L Chloride (98-107) mmol/L Carbon Dioxide (21-32) mmol/L Anion Gap (7-13) mEq/L BUN (7-18) mg/dL Creatinine (0.70-1.30) mg/dL Est Cr Clr Drug Dosing Estimated GFR (MDRD) BUN/Creatinine Ratio (No establ ref range) Glucose (70-99) mg/dL Calcium (8.5-10.1) mg/dL Magnesium (1.8-2.4) mg/dL Total Bilirubin (0.2-1.0) mg/dL AST (15-37) U/L ALT (16-63) U/L Alkaline Phosphatase (46-116) U/L C-Reactive Protein (0.0-0.9) mg/dL Total Protein (6.4-8.2) g/dL Albumin (3.4-5.0) g/dL Globulin Albumin/Globulin Ratio Urine Color (YELLOW) Urine Appearance (CLEAR) Urine pH (5.0-9.0) Ur Specific Denton (1.005-1.030) Urine Protein (NEGATIVE) Urine Glucose (UA) (NEGATIVE) Urine Ketones (NEGATIVE) Urine Occult Blood (NEGATIVE) Urine Nitrite (NEGATIVE) Urine Bilirubin (NEGATIVE) Urine Urobilinogen (0.2-1.0) mg/dL Ur Leukocyte Esterase (NEGATIVE) Urine Opiates Screen (NEGATIVE) Ur Oxycodone Screen (NEGATIVE) Urine Methadone Screen (NEGATIVE) Ur Barbiturates Screen (NEGATIVE) Phenytoin (10-20 (Therapeutic)) ug/mL U Tricyclic Antidepress (NEGATIVE) Ur Phencyclidine Scrn (NEGATIVE) Ur Amphetamine Screen (NEGATIVE) U Methamphetamines Scrn (NEGATIVE) Urine MDMA Screen (NEGATIVE) U Benzodiazepines Scrn (NEGATIVE) Urine Cocaine Screen (NEGATIVE) U Marijuana (THC) Screen (NEGATIVE) Ethyl Alcohol (0) mg/dL Influenza Type A RNA Negative (NEGATIVE) Influenza Type B RNA Negative (NEGATIVE) SARS-CoV-2 RNA (SOTERO) Negative (NEGATIVE) 05/20/20 05/20/20 05/20/20 Range/Units 21:16 21:16 21:45 WBC (5.0-10.0) 10^3/uL RBC (4.6-6.2) 10^6/uL Hgb (14.0-18.0) g/dL Hct (40.0-54.0) % MCV (80-100) fL MCH (27.0-34.0) pg MCHC (33.0-35.0) g/dL Plt Count (150-450) 10^3/uL Neut % (Auto) (42.2-75.2) % Lymph % (Auto) (20.5-50.1) % Greene % (Auto) (2-8) % Eos % (Auto) (1.0-3.0) % Baso % (Auto) (0.0-1.0) % PT (9.0-12.0) SEC INR (0.9-1.2) Sodium 143 (136-145) mmol/L Potassium 3.4 L (3.5-5.1) mmol/L Chloride 104 (98-107) mmol/L Carbon Dioxide 26 (21-32) mmol/L Anion Gap 16.4 H (7-13) mEq/L BUN 10 (7-18) mg/dL Creatinine 0.92 (0.70-1.30) mg/dL Est Cr Clr Drug Dosing TNP Estimated GFR (MDRD) > 60 BUN/Creatinine Ratio 10.9 (No establ ref range) Glucose 93 (70-99) mg/dL Calcium 7.9 L (8.5-10.1) mg/dL Magnesium 2.0 (1.8-2.4) mg/dL Total Bilirubin 0.2 (0.2-1.0) mg/dL AST 62 H (15-37) U/L ALT 75 H (16-63) U/L Alkaline Phosphatase 93 (46-116) U/L C-Reactive Protein < 0.2 (0.0-0.9) mg/dL Total Protein 7.7 (6.4-8.2) g/dL Albumin 3.8 (3.4-5.0) g/dL Globulin 3.9 Albumin/Globulin Ratio 1.0 Urine Color (YELLOW) Urine Appearance (CLEAR) Urine pH (5.0-9.0) Ur Specific Denton (1.005-1.030) Urine Protein (NEGATIVE) Urine Glucose (UA) (NEGATIVE) Urine Ketones (NEGATIVE) Urine Occult Blood (NEGATIVE) Urine Nitrite (NEGATIVE) Urine Bilirubin (NEGATIVE) Urine Urobilinogen (0.2-1.0) mg/dL Ur Leukocyte Esterase (NEGATIVE) Urine Opiates Screen Negative (NEGATIVE) Ur Oxycodone Screen Negative (NEGATIVE) Urine Methadone Screen Negative (NEGATIVE) Ur Barbiturates Screen Negative (NEGATIVE) Phenytoin < 1 L (10-20 (Therapeutic)) ug/mL U Tricyclic Antidepress Negative (NEGATIVE) Ur Phencyclidine Scrn Negative (NEGATIVE) Ur Amphetamine Screen Negative (NEGATIVE) U Methamphetamines Scrn Negative (NEGATIVE) Urine MDMA Screen Negative (NEGATIVE) U Benzodiazepines Scrn Negative (NEGATIVE) Urine Cocaine Screen Negative (NEGATIVE) U Marijuana (THC) Screen Positive H (NEGATIVE) Ethyl Alcohol 383 (0) mg/dL Influenza Type A RNA (NEGATIVE) Influenza Type B RNA (NEGATIVE) SARS-CoV-2 RNA (SOTERO) (NEGATIVE) 05/20/20 Range/Units 21:45 WBC (5.0-10.0) 10^3/uL RBC (4.6-6.2) 10^6/uL Hgb (14.0-18.0) g/dL Hct (40.0-54.0) % MCV (80-100) fL MCH (27.0-34.0) pg MCHC (33.0-35.0) g/dL Plt Count (150-450) 10^3/uL Neut % (Auto) (42.2-75.2) % Lymph % (Auto) (20.5-50.1) % Greene % (Auto) (2-8) % Eos % (Auto) (1.0-3.0) % Baso % (Auto) (0.0-1.0) % PT (9.0-12.0) SEC INR (0.9-1.2) Sodium (136-145) mmol/L Potassium (3.5-5.1) mmol/L Chloride (98-107) mmol/L Carbon Dioxide (21-32) mmol/L Anion Gap (7-13) mEq/L BUN (7-18) mg/dL Creatinine (0.70-1.30) mg/dL Est Cr Clr Drug Dosing Estimated GFR (MDRD) BUN/Creatinine Ratio (No establ ref range) Glucose (70-99) mg/dL Calcium (8.5-10.1) mg/dL Magnesium (1.8-2.4) mg/dL Total Bilirubin (0.2-1.0) mg/dL AST (15-37) U/L ALT (16-63) U/L Alkaline Phosphatase (46-116) U/L C-Reactive Protein (0.0-0.9) mg/dL Total Protein (6.4-8.2) g/dL Albumin (3.4-5.0) g/dL Globulin Albumin/Globulin Ratio Urine Color Yellow (YELLOW) Urine Appearance Clear (CLEAR) Urine pH 5.5 (5.0-9.0) Ur Specific Denton <= 1.005 (1.005-1.030) Urine Protein Negative (NEGATIVE) Urine Glucose (UA) Negative (NEGATIVE) Urine Ketones Negative (NEGATIVE) Urine Occult Blood Negative (NEGATIVE) Urine Nitrite Negative (NEGATIVE) Urine Bilirubin Negative (NEGATIVE) Urine Urobilinogen 0.2 (0.2-1.0) mg/dL Ur Leukocyte Esterase Negative (NEGATIVE) Urine Opiates Screen (NEGATIVE) Ur Oxycodone Screen (NEGATIVE) Urine Methadone Screen (NEGATIVE) Ur Barbiturates Screen (NEGATIVE) Phenytoin (10-20 (Therapeutic)) ug/mL U Tricyclic Antidepress (NEGATIVE) Ur Phencyclidine Scrn (NEGATIVE) Ur Amphetamine Screen (NEGATIVE) U Methamphetamines Scrn (NEGATIVE) Urine MDMA Screen (NEGATIVE) U Benzodiazepines Scrn (NEGATIVE) Urine Cocaine Screen (NEGATIVE) U Marijuana (THC) Screen (NEGATIVE) Ethyl Alcohol (0) mg/dL Influenza Type A RNA (NEGATIVE) Influenza Type B RNA (NEGATIVE) SARS-CoV-2 RNA (SOTERO) (NEGATIVE) Result Diagrams: 05/20/20 21:16 05/20/20 21:16 *Q Meaningful Use (ADM) - VTE *Q VTE Anticoagulation Contraindications: Med/TX Not Indicated/Need Problem List Initiated/Reviewed/Updated: Yes Orders Last 24hrs: Active Orders 24 hr Category Date Time Status Admission Diagnosis [ADT] Stat ADT 05/20/20 22:27 Ordered Admission Status [Patient Status] [ADT] Routine ADT 05/20/20 22:27 Active Aspiration Precautions [RC] ASDIRECTED Care 05/20/20 23:30 Ordered Bedrest Bathroom Privileges [RC] ASDIRECTED Care 05/20/20 23:26 Ordered EKG Documentation Completion [RC] STAT Care 05/20/20 21:03 Active Notify Provider [RC] PRN Care 05/20/20 23:30 Ordered Oxygen Therapy [RC] PRN Care 05/20/20 23:26 Ordered VTE/DVT Education [RC] PER UNIT ROUTINE Care 05/20/20 23:26 Ordered Vital Signs [RC] Q4H Care 05/20/20 23:26 Ordered Consult to Case Management/Qualified Craft Worker Electrician [CONS] Cons 05/20/20 23:26 Ordered Routine Regular Diet [DIET] Diet 05/20/20 Breakfast Ordered Blood Alcohol [ETHANOL BLOOD MEDICAL] [CHEM] AM Lab 05/21/20 05:11 Ordered Blood Alcohol [ETHANOL BLOOD MEDICAL] [CHEM] AM Lab 05/22/20 05:11 Ordered Blood Alcohol [ETHANOL BLOOD MEDICAL] [CHEM] AM Lab 05/23/20 05:11 Ordered Blood Alcohol [ETHANOL BLOOD MEDICAL] [CHEM] AM Lab 05/24/20 05:11 Ordered Blood Alcohol [ETHANOL BLOOD MEDICAL] [CHEM] AM Lab 05/25/20 05:11 Ordered Blood Alcohol [ETHANOL BLOOD MEDICAL] [CHEM] AM Lab 05/26/20 05:11 Ordered Blood Alcohol [ETHANOL BLOOD MEDICAL] [CHEM] AM Lab 05/27/20 05:11 Ordered Blood Alcohol [ETHANOL BLOOD MEDICAL] [CHEM] AM Lab 05/28/20 05:11 Ordered Blood Alcohol [ETHANOL BLOOD MEDICAL] [CHEM] AM Lab 05/29/20 05:11 Ordered Blood Alcohol [ETHANOL BLOOD MEDICAL] [CHEM] AM Lab 05/30/20 05:11 Ordered COMPREHENSIVE METABOLIC PN,CMP [CHEM] AM Lab 05/21/20 05:11 Ordered COMPREHENSIVE METABOLIC PN,CMP [CHEM] AM Lab 05/22/20 05:11 Ordered COMPREHENSIVE METABOLIC PN,CMP [CHEM] AM Lab 05/23/20 05:11 Ordered COMPREHENSIVE METABOLIC PN,CMP [CHEM] AM Lab 05/24/20 05:11 Ordered COMPREHENSIVE METABOLIC PN,CMP [CHEM] AM Lab 05/25/20 05:11 Ordered COMPREHENSIVE METABOLIC PN,CMP [CHEM] AM Lab 05/26/20 05:11 Ordered COMPREHENSIVE METABOLIC PN,CMP [CHEM] AM Lab 05/27/20 05:11 Ordered COMPREHENSIVE METABOLIC PN,CMP [CHEM] AM Lab 05/28/20 05:11 Ordered COMPREHENSIVE METABOLIC PN,CMP [CHEM] AM Lab 05/29/20 05:11 Ordered COMPREHENSIVE METABOLIC PN,CMP [CHEM] AM Lab 05/30/20 05:11 Ordered Acetaminophen [TylenoL] Med 05/20/20 23:26 Ordered 650 mg PO Q4H PRN Docusate Sodium [Colace] Med 05/20/20 23:26 Ordered 100 mg PO BID PRN Enoxaparin [Lovenox] Med 05/21/20 09:00 Ordered 40 mg SUBCUT DAILY LORazepam [Ativan] Med 05/20/20 23:30 Ordered See Protocol PO TITRATE PRN Multivitamins,Therapeutic [Thera] Med 05/21/20 09:00 Ordered 1 each PO DAILY Ondansetron [Zofran] Med 05/20/20 23:26 Ordered 4 mg IVPUSH Q6H PRN Pantoprazole [ProTONIX IV] Med 05/21/20 09:00 Ordered 40 mg IVPUSH Q12HR Phenytoin [Dilantin] Med 05/21/20 09:00 Ordered 600 mg PO TID Sodium Chloride 0.9% @ 125 MLS/HR (1000ml) Med 05/20/20 23:30 Ordered Sodium Chloride 0.9% [Normal Saline] 1,000 ml IV ASDIRECTED Thiamine [Vitamin B-1] Med 05/21/20 09:00 Ordered 100 mg PO DAILY bisacodyL [Dulcolax] Med 05/20/20 23:26 Ordered 5 mg PO DAILY PRN Anticoagulation Contraindications VTE [AST] Routine Oth 05/20/20 23:30 Ordered Seizure Precautions [OM.PC] Stat Oth 05/20/20 23:30 Ordered Resuscitation Status Routine Resus Stat 05/20/20 23:26 Ordered Medication Orders Acetaminophen (Acetaminophen 325 Mg Tab) 650 mg PO Q4H PRN PRN Reason: Pain (Mild 1-3)/fever Bisacodyl (Bisacodyl 5 Mg Tab) 5 mg PO DAILY PRN PRN Reason: Constipation Docusate Sodium (Docusate Sodium 100 Mg Cap) 100 mg PO BID PRN PRN Reason: Constipation Enoxaparin Sodium (Enoxaparin 40 Mg/0.4 Ml Syringe) 40 mg SUBCUT DAILY FLORECITA Sodium Chloride (Normal Saline) 1,000 mls @ 125 mls/hr IV ASDIRECTED FLORECITA Lorazepam (Lorazepam 0.5 Mg Tab) 0 mg PO TITRATE PRN; Protocol PRN Reason: alcohol withdrawal Multivitamins (Multivitamins,Therapeutic Tab) 1 each PO DAILY FLORECITA Ondansetron HCl (Ondansetron 4 Mg/2 Ml Sdv) 4 mg IVPUSH Q6H PRN PRN Reason: Nausea/Vomiting Pantoprazole Sodium (Pantoprazole 40 Mg Vial) 40 mg IVPUSH Q12HR FLORECITA Phenytoin Sodium (Phenytoin 50 Mg Tab.Chew) 600 mg PO TID FLORECITA Thiamine HCl (Thiamine 100 Mg Tab) 100 mg PO DAILY FLORECITA Assessment/Plan Comment:: ETHOH intoxication/ fall?/ ? Seizure Ativan protocol, IVF, MVI, to resume Dilantin, Ethoh level in AM. municipal maintenance worker consult. reassess in AM. No need for DVT prophy because lilely he will ambulatory in AM. Full code
[2020-05-21] MEDS: Sodium Chloride 0.9% 1,000 ML IV SCH ×2 (00:04→08:16)
[2020-05-21 07:07] LABS: ANION GAP 20.6 mEq/L (7-13); CHLORIDE,CL 108 mmol/L (98-107); SODIUM,NA 146 mmol/L (136-145)
[2020-05-21 08:06] VITALS: PULSE 75
[2020-05-21] MEDS ORDERED: Phenytoin 50 MG Tab.Chew PO SCH (09:00)
[2020-05-21] MEDS ORDERED: Enoxaparin 40 MG/0.4 ML Syringe SUBCUT SCH (09:00)
[2020-05-21] MEDS ORDERED: Multivitamins,Therapeutic Tab PO SCH (09:00)
[2020-05-21] MEDS ORDERED: Pantoprazole 40 MG Vial IVPUSH SCH (09:00)
[2020-05-21] MEDS ORDERED: Thiamine 100 MG Tab PO SCH (09:00)
[2020-05-21] MEDS ORDERED: Phenytoin 100 MG Cap.ER PO ONE (11:15)
[2020-05-21 11:48] VITALS: BP 104/68
--- NOTE | 2020-05-21 12:44 | PCM.PN ---
- General Info Date of Service: 05/21/20 Functional Status: Reports: Tolerating Diet - Review of Systems General: Denies: Fever Pulmonary: Denies: Shortness of Breath Gastrointestinal: Denies: Abdominal Pain Neurological: Denies: Gait Disturbance Psychiatric: Denies: Confusion - Patient Data Vitals - Most Recent: Last Vital Signs Temp 98.6 F 05/21/20 11:47 Pulse 75 05/21/20 11:47 Resp 18 05/21/20 11:47 BP 104/68 05/21/20 11:47 Pulse Ox 95 05/21/20 11:47 Weight - Most Recent: 149 lb 9.6 oz I&O - Last 24 Hours: Intake & Output 05/20/20 05/21/20 05/21/20 22:59 06:59 14:59 Intake Total 106 50 Output Total 700 Balance -594 50 Lab Results Last 24 Hours: Laboratory Results - last 24 hr 05/20/20 05/20/20 05/20/20 Range/Units 21:08 21:16 21:16 WBC 6.0 (5.0-10.0) 10^3/uL RBC 4.68 (4.6-6.2) 10^6/uL Hgb 13.5 L (14.0-18.0) g/dL Hct 41.1 (40.0-54.0) % MCV 87.8 (80-100) fL MCH 28.8 (27.0-34.0) pg MCHC 32.8 L (33.0-35.0) g/dL Plt Count 221 (150-450) 10^3/uL Neut % (Auto) 54.6 (42.2-75.2) % Lymph % (Auto) 34.1 (20.5-50.1) % Metcalfe % (Auto) 9.4 H (2-8) % Eos % (Auto) 1.2 (1.0-3.0) % Baso % (Auto) 0.7 (0.0-1.0) % PT 9.9 (9.0-12.0) SEC INR 1.0 (0.9-1.2) Sodium (136-145) mmol/L Potassium (3.5-5.1) mmol/L Chloride (98-107) mmol/L Carbon Dioxide (21-32) mmol/L Anion Gap (7-13) mEq/L BUN (7-18) mg/dL Creatinine (0.70-1.30) mg/dL Est Cr Clr Drug Dosing Estimated GFR (MDRD) BUN/Creatinine Ratio (No establ ref range) Glucose (70-99) mg/dL Calcium (8.5-10.1) mg/dL Magnesium (1.8-2.4) mg/dL Total Bilirubin (0.2-1.0) mg/dL AST (15-37) U/L ALT (16-63) U/L Alkaline Phosphatase (46-116) U/L C-Reactive Protein (0.0-0.9) mg/dL Total Protein (6.4-8.2) g/dL Albumin (3.4-5.0) g/dL Globulin Albumin/Globulin Ratio Urine Color (YELLOW) Urine Appearance (CLEAR) Urine pH (5.0-9.0) Ur Specific [place] (1.005-1.030) Urine Protein (NEGATIVE) Urine Glucose (UA) (NEGATIVE) Urine Ketones (NEGATIVE) Urine Occult Blood (NEGATIVE) Urine Nitrite (NEGATIVE) Urine Bilirubin (NEGATIVE) Urine Urobilinogen (0.2-1.0) mg/dL Ur Leukocyte Esterase (NEGATIVE) Urine Opiates Screen (NEGATIVE) Ur Oxycodone Screen (NEGATIVE) Urine Methadone Screen (NEGATIVE) Ur Barbiturates Screen (NEGATIVE) Phenytoin (10-20 (Therapeutic)) ug/mL U Tricyclic Antidepress (NEGATIVE) Ur Phencyclidine Scrn (NEGATIVE) Ur Amphetamine Screen (NEGATIVE) U Methamphetamines Scrn (NEGATIVE) Urine MDMA Screen (NEGATIVE) U Benzodiazepines Scrn (NEGATIVE) Urine Cocaine Screen (NEGATIVE) U Marijuana (THC) Screen (NEGATIVE) Ethyl Alcohol (0) mg/dL Influenza Type A RNA Negative (NEGATIVE) Influenza Type B RNA Negative (NEGATIVE) SARS-CoV-2 RNA (SOTERO) Negative (NEGATIVE) 05/20/20 05/20/20 05/20/20 Range/Units 21:16 21:16 21:45 WBC (5.0-10.0) 10^3/uL RBC (4.6-6.2) 10^6/uL Hgb (14.0-18.0) g/dL Hct (40.0-54.0) % MCV (80-100) fL MCH (27.0-34.0) pg MCHC (33.0-35.0) g/dL Plt Count (150-450) 10^3/uL Neut % (Auto) (42.2-75.2) % Lymph % (Auto) (20.5-50.1) % Metcalfe % (Auto) (2-8) % Eos % (Auto) (1.0-3.0) % Baso % (Auto) (0.0-1.0) % PT (9.0-12.0) SEC INR (0.9-1.2) Sodium 143 (136-145) mmol/L Potassium 3.4 L (3.5-5.1) mmol/L Chloride 104 (98-107) mmol/L Carbon Dioxide 26 (21-32) mmol/L Anion Gap 16.4 H (7-13) mEq/L BUN 10 (7-18) mg/dL Creatinine 0.92 (0.70-1.30) mg/dL Est Cr Clr Drug Dosing TNP Estimated GFR (MDRD) > 60 BUN/Creatinine Ratio 10.9 (No establ ref range) Glucose 93 (70-99) mg/dL Calcium 7.9 L (8.5-10.1) mg/dL Magnesium 2.0 (1.8-2.4) mg/dL Total Bilirubin 0.2 (0.2-1.0) mg/dL AST 62 H (15-37) U/L ALT 75 H (16-63) U/L Alkaline Phosphatase 93 (46-116) U/L C-Reactive Protein < 0.2 (0.0-0.9) mg/dL Total Protein 7.7 (6.4-8.2) g/dL Albumin 3.8 (3.4-5.0) g/dL Globulin 3.9 Albumin/Globulin Ratio 1.0 Urine Color (YELLOW) Urine Appearance (CLEAR) Urine pH (5.0-9.0) Ur Specific [place] (1.005-1.030) Urine Protein (NEGATIVE) Urine Glucose (UA) (NEGATIVE) Urine Ketones (NEGATIVE) Urine Occult Blood (NEGATIVE) Urine Nitrite (NEGATIVE) Urine Bilirubin (NEGATIVE) Urine Urobilinogen (0.2-1.0) mg/dL Ur Leukocyte Esterase (NEGATIVE) Urine Opiates Screen Negative (NEGATIVE) Ur Oxycodone Screen Negative (NEGATIVE) Urine Methadone Screen Negative (NEGATIVE) Ur Barbiturates Screen Negative (NEGATIVE) Phenytoin < 1 L (10-20 (Therapeutic)) ug/mL U Tricyclic Antidepress Negative (NEGATIVE) Ur Phencyclidine Scrn Negative (NEGATIVE) Ur Amphetamine Screen Negative (NEGATIVE) U Methamphetamines Scrn Negative (NEGATIVE) Urine MDMA Screen Negative (NEGATIVE) U Benzodiazepines Scrn Negative (NEGATIVE) Urine Cocaine Screen Negative (NEGATIVE) U Marijuana (THC) Screen Positive H (NEGATIVE) Ethyl Alcohol 383 (0) mg/dL Influenza Type A RNA (NEGATIVE) Influenza Type B RNA (NEGATIVE) SARS-CoV-2 RNA (SOTERO) (NEGATIVE) 05/20/20 05/21/20 05/21/20 Range/Units 21:45 06:18 11:16 WBC (5.0-10.0) 10^3/uL RBC (4.6-6.2) 10^6/uL Hgb (14.0-18.0) g/dL Hct (40.0-54.0) % MCV (80-100) fL MCH (27.0-34.0) pg MCHC (33.0-35.0) g/dL Plt Count (150-450) 10^3/uL Neut % (Auto) (42.2-75.2) % Lymph % (Auto) (20.5-50.1) % [place]cal[place] % (Auto) (2-8) % Eos % (Auto) (1.0-3.0) % Baso % (Auto) (0.0-1.0) % PT (9.0-12.0) SEC INR (0.9-1.2) Sodium 146 H (136-145) mmol/L Potassium 3.6 (3.5-5.1) mmol/L Chloride 108 H (98-107) mmol/L Carbon Dioxide 21 (21-32) mmol/L Anion Gap 20.6 H (7-13) mEq/L BUN 9 (7-18) mg/dL Creatinine 0.82 (0.70-1.30) mg/dL Est Cr Clr Drug Dosing 104.59 Estimated GFR (MDRD) > 60 BUN/Creatinine Ratio 11.0 (No establ ref range) Glucose 65 L (70-99) mg/dL Calcium 7.4 L (8.5-10.1) mg/dL Magnesium (1.8-2.4) mg/dL Total Bilirubin 0.3 (0.2-1.0) mg/dL AST 44 H (15-37) U/L ALT 55 (16-63) U/L Alkaline Phosphatase 77 (46-116) U/L C-Reactive Protein (0.0-0.9) mg/dL Total Protein 6.0 L (6.4-8.2) g/dL Albumin 3.2 L (3.4-5.0) g/dL Globulin 2.8 Albumin/Globulin Ratio 1.14 Urine Color Yellow (YELLOW) Urine Appearance Clear (CLEAR) Urine pH 5.5 (5.0-9.0) Ur Specific [place] <= 1.005 (1.005-1.030) Urine Protein Negative (NEGATIVE) Urine Glucose (UA) Negative (NEGATIVE) Urine Ketones Negative (NEGATIVE) Urine Occult Blood Negative (NEGATIVE) Urine Nitrite Negative (NEGATIVE) Urine Bilirubin Negative (NEGATIVE) Urine Urobilinogen 0.2 (0.2-1.0) mg/dL Ur Leukocyte Esterase Negative (NEGATIVE) Urine Opiates Screen (NEGATIVE) Ur Oxycodone Screen (NEGATIVE) Urine Methadone Screen (NEGATIVE) Ur Barbiturates Screen (NEGATIVE) Phenytoin (10-20 (Therapeutic)) ug/mL U Tricyclic Antidepress (NEGATIVE) Ur Phencyclidine Scrn (NEGATIVE) Ur Amphetamine Screen (NEGATIVE) U Methamphetamines Scrn (NEGATIVE) Urine MDMA Screen (NEGATIVE) U Benzodiazepines Scrn (NEGATIVE) Urine Cocaine Screen (NEGATIVE) U Marijuana (THC) Screen (NEGATIVE) Ethyl Alcohol 176 79 (0) mg/dL Influenza Type A RNA (NEGATIVE) Influenza Type B RNA (NEGATIVE) SARS-CoV-2 RNA (SOTERO) (NEGATIVE) Med Orders - Current: Current Medications Acetaminophen (Acetaminophen 325 Mg Tab) 650 mg PO Q4H PRN PRN Reason: Pain (Mild 1-3)/fever Last Admin: 05/21/20 00:05 Dose: 650 mg Documented by: Bisacodyl (Bisacodyl 5 Mg Tab) 5 mg PO DAILY PRN PRN Reason: Constipation Docusate Sodium (Docusate Sodium 100 Mg Cap) 100 mg PO BID PRN PRN Reason: Constipation Enoxaparin Sodium (Enoxaparin 40 Mg/0.4 Ml Syringe) 40 mg SUBCUT DAILY [facility] Last Admin: 05/21/20 09:50 Dose: 40 mg Documented by: Sodium Chloride (Normal Saline) 1,000 mls @ 125 mls/hr IV ASDIRECTED [facility] Last Admin: 05/21/20 08:16 Dose: 125 mls/hr Documented by: Lorazepam (Lorazepam 0.5 Mg Tab) 0 mg PO TITRATE PRN; Protocol PRN Reason: alcohol withdrawal Multivitamins (Multivitamins,Therapeutic Tab) 1 each PO DAILY [facility] Last Admin: 05/21/20 09:49 Dose: 1 each Documented by: Ondansetron HCl (Ondansetron 4 Mg/2 Ml Sdv) 4 mg IVPUSH Q6H PRN PRN Reason: Nausea/Vomiting Pantoprazole Sodium (Pantoprazole 40 Mg Vial) 40 mg IVPUSH Q12HR [facility] Last Admin: 05/21/20 09:49 Dose: 40 mg Documented by: Pantoprazole Sodium (Pantoprazole 40 Mg Tab.Cr) 40 mg PO DAILY [facility] Phenytoin Sodium (Phenytoin 100 Mg Cap.Er) 100 mg PO TID [facility] Thiamine HCl (Thiamine 100 Mg Tab) 100 mg PO DAILY [facility] Last Admin: 05/21/20 09:49 Dose: 100 mg Documented by: Discontinued Medications Multivitamins/Minerals 10 ml/Folic Acid 1 mg/ Thiamine HCl 100 mg/ Lactated Ringer's 1,011.2 mls @ 999 mls/hr IV ONETIME ONE Stop: 05/20/20 22:05 Last Admin: 05/20/20 21:15 Dose: 999 mls/hr Documented by: Phenytoin Sodium 1,000 mg/ (Sodium Chloride) 120 mls @ 240 mls/hr IV ONETIME ONE Stop: 05/20/20 22:00 Last Admin: 05/20/20 22:40 Dose: 240 mls/hr Documented by: Phenytoin Sodium (Phenytoin 50 Mg Tab.Chew) 600 mg PO TID [facility] Last Admin: 05/21/20 10:19 Dose: Not Given Documented by: Phenytoin Sodium (Phenytoin 100 Mg Cap.Er) 300 mg PO ONETIME ONE Stop: 05/21/20 11:16 Last Admin: 05/21/20 11:33 Dose: 300 mg Documented by: - Exam Quality Assessment: No: Supplemental Oxygen Lungs: Clear to Auscultation Cardiovascular: Regular Rate, Regular Rhythm (Male) Exam: Deferred Extremities: Normal Inspection, Normal Range of Motion Skin: Warm Neurological: No New Focal Deficit Psy/Mental Status: Alert - Patient Data Lab Results Last 24 hrs: Laboratory Results - last 24 hr 05/20/20 05/20/20 05/20/20 Range/Units 21:08 21:16 21:16 WBC 6.0 (5.0-10.0) 10^3/uL RBC 4.68 (4.6-6.2) 10^6/uL Hgb 13.5 L (14.0-18.0) g/dL Hct 41.1 (40.0-54.0) % MCV 87.8 (80-100) fL MCH 28.8 (27.0-34.0) pg MCHC 32.8 L (33.0-35.0) g/dL Plt Count 221 (150-450) 10^3/uL Neut % (Auto) 54.6 (42.2-75.2) % Lymph % (Auto) 34.1 (20.5-50.1) % [place]fe % (Auto) 9.4 H (2-8) % Eos % (Auto) 1.2 (1.0-3.0) % Baso % (Auto) 0.7 (0.0-1.0) % PT 9.9 (9.0-12.0) SEC INR 1.0 (0.9-1.2) Sodium (136-145) mmol/L Potassium (3.5-5.1) mmol/L Chloride (98-107) mmol/L Carbon Dioxide (21-32) mmol/L Anion Gap (7-13) mEq/L BUN (7-18) mg/dL Creatinine (0.70-1.30) mg/dL Est Cr Clr Drug Dosing Estimated GFR (MDRD) BUN/Creatinine Ratio (No establ ref range) Glucose (70-99) mg/dL Calcium (8.5-10.1) mg/dL Magnesium (1.8-2.4) mg/dL Total Bilirubin (0.2-1.0) mg/dL AST (15-37) U/L ALT (16-63) U/L Alkaline Phosphatase (46-116) U/L C-Reactive Protein (0.0-0.9) mg/dL Total Protein (6.4-8.2) g/dL Albumin (3.4-5.0) g/dL Globulin Albumin/Globulin Ratio Urine Color (YELLOW) Urine Appearance (CLEAR) Urine pH (5.0-9.0) Ur Specific [place] (1.005-1.030) Urine Protein (NEGATIVE) Urine Glucose (UA) (NEGATIVE) Urine Ketones (NEGATIVE) Urine Occult Blood (NEGATIVE) Urine Nitrite (NEGATIVE) Urine Bilirubin (NEGATIVE) Urine Urobilinogen (0.2-1.0) mg/dL Ur Leukocyte Esterase (NEGATIVE) Urine Opiates Screen (NEGATIVE) Ur Oxycodone Screen (NEGATIVE) Urine Methadone Screen (NEGATIVE) Ur Barbiturates Screen (NEGATIVE) Phenytoin (10-20 (Therapeutic)) ug/mL U Tricyclic Antidepress (NEGATIVE) Ur Phencyclidine Scrn (NEGATIVE) Ur Amphetamine Screen (NEGATIVE) U Methamphetamines Scrn (NEGATIVE) Urine MDMA Screen (NEGATIVE) U Benzodiazepines Scrn (NEGATIVE) Urine Cocaine Screen (NEGATIVE) U Marijuana (THC) Screen (NEGATIVE) Ethyl Alcohol (0) mg/dL Influenza Type A RNA Negative (NEGATIVE) Influenza Type B RNA Negative (NEGATIVE) SARS-CoV-2 RNA (SOTERO) Negative (NEGATIVE) 05/20/20 05/20/20 05/20/20 Range/Units 21:16 21:16 21:45 WBC (5.0-10.0) 10^3/uL RBC (4.6-6.2) 10^6/uL Hgb (14.0-18.0) g/dL Hct (40.0-54.0) % MCV (80-100) fL MCH (27.0-34.0) pg MCHC (33.0-35.0) g/dL Plt Count (150-450) 10^3/uL Neut % (Auto) (42.2-75.2) % Lymph % (Auto) (20.5-50.1) % [place] % (Auto) (2-8) % Eos % (Auto) (1.0-3.0) % Baso % (Auto) (0.0-1.0) % PT (9.0-12.0) SEC INR (0.9-1.2) Sodium 143 (136-145) mmol/L Potassium 3.4 L (3.5-5.1) mmol/L Chloride 104 (98-107) mmol/L Carbon Dioxide 26 (21-32) mmol/L Anion Gap 16.4 H (7-13) mEq/L BUN 10 (7-18) mg/dL Creatinine 0.92 (0.70-1.30) mg/dL Est Cr Clr Drug Dosing TNP Estimated GFR (MDRD) > 60 BUN/Creatinine Ratio 10.9 (No establ ref range) Glucose 93 (70-99) mg/dL Calcium 7.9 L (8.5-10.1) mg/dL Magnesium 2.0 (1.8-2.4) mg/dL Total Bilirubin 0.2 (0.2-1.0) mg/dL AST 62 H (15-37) U/L ALT 75 H (16-63) U/L Alkaline Phosphatase 93 (46-116) U/L C-Reactive Protein < 0.2 (0.0-0.9) mg/dL Total Protein 7.7 (6.4-8.2) g/dL Albumin 3.8 (3.4-5.0) g/dL Globulin 3.9 Albumin/Globulin Ratio 1.0 Urine Color (YELLOW) Urine Appearance (CLEAR) Urine pH (5.0-9.0) Ur Specific [place] (1.005-1.030) Urine Protein (NEGATIVE) Urine Glucose (UA) (NEGATIVE) Urine Ketones (NEGATIVE) Urine Occult Blood (NEGATIVE) Urine Nitrite (NEGATIVE) Urine Bilirubin (NEGATIVE) Urine Urobilinogen (0.2-1.0) mg/dL Ur Leukocyte Esterase (NEGATIVE) Urine Opiates Screen Negative (NEGATIVE) Ur Oxycodone Screen Negative (NEGATIVE) Urine Methadone Screen Negative (NEGATIVE) Ur Barbiturates Screen Negative (NEGATIVE) Phenytoin < 1 L (10-20 (Therapeutic)) ug/mL U Tricyclic Antidepress Negative (NEGATIVE) Ur Phencyclidine Scrn Negative (NEGATIVE) Ur Amphetamine Screen Negative (NEGATIVE) U Methamphetamines Scrn Negative (NEGATIVE) Urine MDMA Screen Negative (NEGATIVE) U Benzodiazepines Scrn Negative (NEGATIVE) Urine Cocaine Screen Negative (NEGATIVE) U Marijuana (THC) Screen Positive H (NEGATIVE) Ethyl Alcohol 383 (0) mg/dL Influenza Type A RNA (NEGATIVE) Influenza Type B RNA (NEGATIVE) SARS-CoV-2 RNA (SOTERO) (NEGATIVE) 05/20/20 05/21/20 05/21/20 Range/Units 21:45 06:18 11:16 WBC (5.0-10.0) 10^3/uL RBC (4.6-6.2) 10^6/uL Hgb (14.0-18.0) g/dL Hct (40.0-54.0) % MCV (80-100) fL MCH (27.0-34.0) pg MCHC (33.0-35.0) g/dL Plt Count (150-450) 10^3/uL Neut % (Auto) (42.2-75.2) % Lymph % (Auto) (20.5-50.1) % [place] % (Auto) (2-8) % Eos % (Auto) (1.0-3.0) % Baso % (Auto) (0.0-1.0) % PT (9.0-12.0) SEC INR (0.9-1.2) Sodium 146 H (136-145) mmol/L Potassium 3.6 (3.5-5.1) mmol/L Chloride 108 H (98-107) mmol/L Carbon Dioxide 21 (21-32) mmol/L Anion Gap 20.6 H (7-13) mEq/L BUN 9 (7-18) mg/dL Creatinine 0.82 (0.70-1.30) mg/dL Est Cr Clr Drug Dosing 104.59 Estimated GFR (MDRD) > 60 BUN/Creatinine Ratio 11.0 (No establ ref range) Glucose 65 L (70-99) mg/dL Calcium 7.4 L (8.5-10.1) mg/dL Magnesium (1.8-2.4) mg/dL Total Bilirubin 0.3 (0.2-1.0) mg/dL AST 44 H (15-37) U/L ALT 55 (16-63) U/L Alkaline Phosphatase 77 (46-116) U/L C-Reactive Protein (0.0-0.9) mg/dL Total Protein 6.0 L (6.4-8.2) g/dL Albumin 3.2 L (3.4-5.0) g/dL Globulin 2.8 Albumin/Globulin Ratio 1.14 Urine Color Yellow (YELLOW) Urine Appearance Clear (CLEAR) Urine pH 5.5 (5.0-9.0) Ur Specific [place] <= 1.005 (1.005-1.030) Urine Protein Negative (NEGATIVE) Urine Glucose (UA) Negative (NEGATIVE) Urine Ketones Negative (NEGATIVE) Urine Occult Blood Negative (NEGATIVE) Urine Nitrite Negative (NEGATIVE) Urine Bilirubin Negative (NEGATIVE) Urine Urobilinogen 0.2 (0.2-1.0) mg/dL Ur Leukocyte Esterase Negative (NEGATIVE) Urine Opiates Screen (NEGATIVE) Ur Oxycodone Screen (NEGATIVE) Urine Methadone Screen (NEGATIVE) Ur Barbiturates Screen (NEGATIVE) Phenytoin (10-20 (Therapeutic)) ug/mL U Tricyclic Antidepress (NEGATIVE) Ur Phencyclidine Scrn (NEGATIVE) Ur Amphetamine Screen (NEGATIVE) U Methamphetamines Scrn (NEGATIVE) Urine MDMA Screen (NEGATIVE) U Benzodiazepines Scrn (NEGATIVE) Urine Cocaine Screen (NEGATIVE) U Marijuana (THC) Screen (NEGATIVE) Ethyl Alcohol 176 79 (0) mg/dL Influenza Type A RNA (NEGATIVE) Influenza Type B RNA (NEGATIVE) SARS-CoV-2 RNA (SOTERO) (NEGATIVE) Result Diagrams: 05/20/20 21:16 05/21/20 06:18 Sepsis Event Note - Evaluation Sepsis Screening Result: No Definite Risk - Focused Exam Vital Signs: Vital Signs Temp Pulse Resp BP Pulse Ox 05/21/20 11:47 98.6 F 75 18 104/68 95 05/21/20 08:00 97.3 F 75 20 101/68 95 - Problem List Review Problem List Initiated/Reviewed/Updated: Yes - My Orders Last 24 Hours: My Active Orders 05/20/20 23:26 Bedrest Bathroom Privileges [RC] ASDIRECTED Oxygen Therapy [RC] PRN VTE/DVT Education [RC] 08,20 Vital Signs [RC] 00,04,08,12,16,20 Consult to Case Management/Home Staging Specialist [CONS] Routine Acetaminophen [TylenoL] 650 mg PO Q4H PRN Docusate Sodium [Colace] 100 mg PO BID PRN Ondansetron [Zofran] 4 mg IVPUSH Q6H PRN bisacodyL [Dulcolax] 5 mg PO DAILY PRN Resuscitation Status Routine 05/20/20 23:30 Aspiration Precautions [RC] ASDIRECTED Notify Provider [RC] PRN LORazepam [Ativan] See Protocol PO TITRATE PRN Sodium Chloride 0.9% [Normal Saline] 1,000 ml IV ASDIRECTED Anticoagulation Contraindications VTE [AST] Routine Seizure Precautions [OM.PC] Stat 05/21/20 09:00 Enoxaparin [Lovenox] 40 mg SUBCUT DAILY Multivitamins,Therapeutic [Thera] 1 each PO DAILY Pantoprazole [ProTONIX IV] 40 mg IVPUSH Q12HR Thiamine [Vitamin B-1] 100 mg PO DAILY 05/21/20 14:00 Phenytoin 100 mg PO TID 05/22/20 05:11 Blood Alcohol [ETHANOL BLOOD MEDICAL] [CHEM] AM COMPREHENSIVE METABOLIC PN,CMP [CHEM] AM 05/22/20 09:00 Pantoprazole [ProTONIX] 40 mg PO DAILY 05/23/20 05:11 Blood Alcohol [ETHANOL BLOOD MEDICAL] [CHEM] AM COMPREHENSIVE METABOLIC PN,CMP [CHEM] AM 05/24/20 05:11 Blood Alcohol [ETHANOL BLOOD MEDICAL] [CHEM] AM COMPREHENSIVE METABOLIC PN,CMP [CHEM] AM 05/25/20 05:11 Blood Alcohol [ETHANOL BLOOD MEDICAL] [CHEM] AM COMPREHENSIVE METABOLIC PN,CMP [CHEM] AM 05/26/20 05:11 Blood Alcohol [ETHANOL BLOOD MEDICAL] [CHEM] AM COMPREHENSIVE METABOLIC PN,CMP [CHEM] AM 05/27/20 05:11 Blood Alcohol [ETHANOL BLOOD MEDICAL] [CHEM] AM COMPREHENSIVE METABOLIC PN,CMP [CHEM] AM 05/28/20 05:11 Blood Alcohol [ETHANOL BLOOD MEDICAL] [CHEM] AM COMPREHENSIVE METABOLIC PN,CMP [CHEM] AM 05/29/20 05:11 Blood Alcohol [ETHANOL BLOOD MEDICAL] [CHEM] AM COMPREHENSIVE METABOLIC PN,CMP [CHEM] AM 05/30/20 05:11 Blood Alcohol [ETHANOL BLOOD MEDICAL] [CHEM] AM COMPREHENSIVE METABOLIC PN,CMP [CHEM] AM - Plan Plan:: ETHOH intoxication/ fall?/ ? Seizure Ativan protocol, DC IVF, MVI, to resume Dilantin, . Mental health consult. No need for DVT prophy because lilely he will ambulatory in AM. Full code
[2020-05-21] MEDS ORDERED: Phenytoin 100 MG Cap.ER PO SCH (14:00)
--- NOTE | 2020-05-21 14:44 | PCM.DCSUM1 ---
Discharge Summary - Hospital Course Free Text/Narrative:: Patient is a 49-year-old male who presented to ER by ambulance service with complaint of seizure. Patient states he had seizures today. States he has been drinking for a day. Patient complained of pain all over his body. States when he had a seizure today he did fall hit his head, and was knocked out. Patient complained of pain to the right arm and leg knee pain. States he fell down some steps less than a year ago and had surgery on that right arm. Patient states he has a seizure disorder, takes Dilantin. He states it has been "few days" since he is taken his Dilantin. Patient denies any other health problems. Denies drinking on a daily basis. EMS reported no witnessed seizures. When complaining of pain he complains of pain to the right arm, chest, abdomen upon palpation, legs bilaterally, head. Work up in ER was showed no acute findings ( CT head, neck, chest , abdomen and pelvis). Pt was admitted for obeservation because he was intoxicated. ETHOH intoxication/ fall?/ ? Seizure Pt was treated with Ativan protocol, IVF, MVI, to resume Dilantin,. Ethoh level trended down. Mental health was consulted: pt is not interested in inpatient rehab program. Today pt was able to ambulate , ate his meals and he is happy to go home. He was advised to take his medications and to follow up with mental health and his doctor. Full code - Discharge Data Discharge Date: 05/21/20 Discharge Disposition: Home, Self-Care 01 Condition: Good - Referral to Home Health Primary Care Physician: PCP None - Patient Summary/Data Consults: Consultations 05/20/20 23:26 Consult to Case Management/Payroll Administrator [CONS] Routine - Discharge Plan *PRESCRIPTION DRUG MONITORING PROGRAM REVIEWED*: No *COPY OF PRESCRIPTION DRUG MONITORING REPORT IN PATIENT DANNIE: No Prescriptions/Med Rec: Phenytoin Sodium Extended [Dilantin] 100 mg PO TID 15 Days #45 Home Medications: Home Meds Pantoprazole Sodium [Protonix] 40 mg PO DAILY 05/21/20 [History] Phenytoin Sodium Extended [Dilantin] 100 mg PO TID 15 Days #45 05/21/20 [Rx] Oxygen Therapy Mode: Room Air Referrals: PCP,None [Primary Care Provider] - - Discharge Summary/Plan Comment DC Time >30 min.: No - General Info Functional Status: Reports: Tolerating Diet, Ambulating. Denies: Pain Controlled - Review of Systems General: Denies: Fever, Weakness HEENT: Denies: Headaches Pulmonary: Denies: Shortness of Breath Cardiovascular: Denies: Chest Pain Gastrointestinal: Denies: Abdominal Pain Skin: Denies: Cyanosis Neurological: Denies: Confusion, Gait Disturbance Psychiatric: Denies: Confusion - Patient Data Vitals - Most Recent: Last Vital Signs Temp 98.6 F 05/21/20 11:47 Pulse 75 05/21/20 11:47 Resp 18 05/21/20 11:47 BP 104/68 05/21/20 11:47 Pulse Ox 95 05/21/20 11:47 Weight - Most Recent: 149 lb 9.6 oz I&O - Last 24 hours: Intake & Output 05/20/20 05/21/20 05/21/20 22:59 06:59 14:59 Intake Total 106 510 Output Total 700 Balance -594 510 Lab Results - Last 24 hrs: Laboratory Results - last 24 hr 05/20/20 05/20/20 05/20/20 Range/Units 21:08 21:16 21:16 WBC 6.0 (5.0-10.0) 10^3/uL RBC 4.68 (4.6-6.2) 10^6/uL Hgb 13.5 L (14.0-18.0) g/dL Hct 41.1 (40.0-54.0) % MCV 87.8 (80-100) fL MCH 28.8 (27.0-34.0) pg MCHC 32.8 L (33.0-35.0) g/dL Plt Count 221 (150-450) 10^3/uL Neut % (Auto) 54.6 (42.2-75.2) % Lymph % (Auto) 34.1 (20.5-50.1) % Nolan % (Auto) 9.4 H (2-8) % Eos % (Auto) 1.2 (1.0-3.0) % Baso % (Auto) 0.7 (0.0-1.0) % PT 9.9 (9.0-12.0) SEC INR 1.0 (0.9-1.2) Sodium (136-145) mmol/L Potassium (3.5-5.1) mmol/L Chloride (98-107) mmol/L Carbon Dioxide (21-32) mmol/L Anion Gap (7-13) mEq/L BUN (7-18) mg/dL Creatinine (0.70-1.30) mg/dL Est Cr Clr Drug Dosing Estimated GFR (MDRD) BUN/Creatinine Ratio (No establ ref range) Glucose (70-99) mg/dL Calcium (8.5-10.1) mg/dL Magnesium (1.8-2.4) mg/dL Total Bilirubin (0.2-1.0) mg/dL AST (15-37) U/L ALT (16-63) U/L Alkaline Phosphatase (46-116) U/L C-Reactive Protein (0.0-0.9) mg/dL Total Protein (6.4-8.2) g/dL Albumin (3.4-5.0) g/dL Globulin Albumin/Globulin Ratio Urine Color (YELLOW) Urine Appearance (CLEAR) Urine pH (5.0-9.0) Ur Specific Cornish (1.005-1.030) Urine Protein (NEGATIVE) Urine Glucose (UA) (NEGATIVE) Urine Ketones (NEGATIVE) Urine Occult Blood (NEGATIVE) Urine Nitrite (NEGATIVE) Urine Bilirubin (NEGATIVE) Urine Urobilinogen (0.2-1.0) mg/dL Ur Leukocyte Esterase (NEGATIVE) Urine Opiates Screen (NEGATIVE) Ur Oxycodone Screen (NEGATIVE) Urine Methadone Screen (NEGATIVE) Ur Barbiturates Screen (NEGATIVE) Phenytoin (10-20 (Therapeutic)) ug/mL U Tricyclic Antidepress (NEGATIVE) Ur Phencyclidine Scrn (NEGATIVE) Ur Amphetamine Screen (NEGATIVE) U Methamphetamines Scrn (NEGATIVE) Urine MDMA Screen (NEGATIVE) U Benzodiazepines Scrn (NEGATIVE) Urine Cocaine Screen (NEGATIVE) U Marijuana (THC) Screen (NEGATIVE) Ethyl Alcohol (0) mg/dL Influenza Type A RNA Negative (NEGATIVE) Influenza Type B RNA Negative (NEGATIVE) SARS-CoV-2 RNA (SOTERO) Negative (NEGATIVE) 05/20/20 05/20/20 05/20/20 Range/Units 21:16 21:16 21:45 WBC (5.0-10.0) 10^3/uL RBC (4.6-6.2) 10^6/uL Hgb (14.0-18.0) g/dL Hct (40.0-54.0) % MCV (80-100) fL MCH (27.0-34.0) pg MCHC (33.0-35.0) g/dL Plt Count (150-450) 10^3/uL Neut % (Auto) (42.2-75.2) % Lymph % (Auto) (20.5-50.1) % Nolan % (Auto) (2-8) % Eos % (Auto) (1.0-3.0) % Baso % (Auto) (0.0-1.0) % PT (9.0-12.0) SEC INR (0.9-1.2) Sodium 143 (136-145) mmol/L Potassium 3.4 L (3.5-5.1) mmol/L Chloride 104 (98-107) mmol/L Carbon Dioxide 26 (21-32) mmol/L Anion Gap 16.4 H (7-13) mEq/L BUN 10 (7-18) mg/dL Creatinine 0.92 (0.70-1.30) mg/dL Est Cr Clr Drug Dosing TNP Estimated GFR (MDRD) > 60 BUN/Creatinine Ratio 10.9 (No establ ref range) Glucose 93 (70-99) mg/dL Calcium 7.9 L (8.5-10.1) mg/dL Magnesium 2.0 (1.8-2.4) mg/dL Total Bilirubin 0.2 (0.2-1.0) mg/dL AST 62 H (15-37) U/L ALT 75 H (16-63) U/L Alkaline Phosphatase 93 (46-116) U/L C-Reactive Protein < 0.2 (0.0-0.9) mg/dL Total Protein 7.7 (6.4-8.2) g/dL Albumin 3.8 (3.4-5.0) g/dL Globulin 3.9 Albumin/Globulin Ratio 1.0 Urine Color (YELLOW) Urine Appearance (CLEAR) Urine pH (5.0-9.0) Ur Specific Cornish (1.005-1.030) Urine Protein (NEGATIVE) Urine Glucose (UA) (NEGATIVE) Urine Ketones (NEGATIVE) Urine Occult Blood (NEGATIVE) Urine Nitrite (NEGATIVE) Urine Bilirubin (NEGATIVE) Urine Urobilinogen (0.2-1.0) mg/dL Ur Leukocyte Esterase (NEGATIVE) Urine Opiates Screen Negative (NEGATIVE) Ur Oxycodone Screen Negative (NEGATIVE) Urine Methadone Screen Negative (NEGATIVE) Ur Barbiturates Screen Negative (NEGATIVE) Phenytoin < 1 L (10-20 (Therapeutic)) ug/mL U Tricyclic Antidepress Negative (NEGATIVE) Ur Phencyclidine Scrn Negative (NEGATIVE) Ur Amphetamine Screen Negative (NEGATIVE) U Methamphetamines Scrn Negative (NEGATIVE) Urine MDMA Screen Negative (NEGATIVE) U Benzodiazepines Scrn Negative (NEGATIVE) Urine Cocaine Screen Negative (NEGATIVE) U Marijuana (THC) Screen Positive H (NEGATIVE) Ethyl Alcohol 383 (0) mg/dL Influenza Type A RNA (NEGATIVE) Influenza Type B RNA (NEGATIVE) SARS-CoV-2 RNA (SOTERO) (NEGATIVE) 05/20/20 05/21/20 05/21/20 Range/Units 21:45 06:18 11:16 WBC (5.0-10.0) 10^3/uL RBC (4.6-6.2) 10^6/uL Hgb (14.0-18.0) g/dL Hct (40.0-54.0) % MCV (80-100) fL MCH (27.0-34.0) pg MCHC (33.0-35.0) g/dL Plt Count (150-450) 10^3/uL Neut % (Auto) (42.2-75.2) % Lymph % (Auto) (20.5-50.1) % Nolan % (Auto) (2-8) % Eos % (Auto) (1.0-3.0) % Baso % (Auto) (0.0-1.0) % PT (9.0-12.0) SEC INR (0.9-1.2) Sodium 146 H (136-145) mmol/L Potassium 3.6 (3.5-5.1) mmol/L Chloride 108 H (98-107) mmol/L Carbon Dioxide 21 (21-32) mmol/L Anion Gap 20.6 H (7-13) mEq/L BUN 9 (7-18) mg/dL Creatinine 0.82 (0.70-1.30) mg/dL Est Cr Clr Drug Dosing 104.59 Estimated GFR (MDRD) > 60 BUN/Creatinine Ratio 11.0 (No establ ref range) Glucose 65 L (70-99) mg/dL Calcium 7.4 L (8.5-10.1) mg/dL Magnesium (1.8-2.4) mg/dL Total Bilirubin 0.3 (0.2-1.0) mg/dL AST 44 H (15-37) U/L ALT 55 (16-63) U/L Alkaline Phosphatase 77 (46-116) U/L C-Reactive Protein (0.0-0.9) mg/dL Total Protein 6.0 L (6.4-8.2) g/dL Albumin 3.2 L (3.4-5.0) g/dL Globulin 2.8 Albumin/Globulin Ratio 1.14 Urine Color Yellow (YELLOW) Urine Appearance Clear (CLEAR) Urine pH 5.5 (5.0-9.0) Ur Specific Cornish <= 1.005 (1.005-1.030) Urine Protein Negative (NEGATIVE) Urine Glucose (UA) Negative (NEGATIVE) Urine Ketones Negative (NEGATIVE) Urine Occult Blood Negative (NEGATIVE) Urine Nitrite Negative (NEGATIVE) Urine Bilirubin Negative (NEGATIVE) Urine Urobilinogen 0.2 (0.2-1.0) mg/dL Ur Leukocyte Esterase Negative (NEGATIVE) Urine Opiates Screen (NEGATIVE) Ur Oxycodone Screen (NEGATIVE) Urine Methadone Screen (NEGATIVE) Ur Barbiturates Screen (NEGATIVE) Phenytoin (10-20 (Therapeutic)) ug/mL U Tricyclic Antidepress (NEGATIVE) Ur Phencyclidine Scrn (NEGATIVE) Ur Amphetamine Screen (NEGATIVE) U Methamphetamines Scrn (NEGATIVE) Urine MDMA Screen (NEGATIVE) U Benzodiazepines Scrn (NEGATIVE) Urine Cocaine Screen (NEGATIVE) U Marijuana (THC) Screen (NEGATIVE) Ethyl Alcohol 176 79 (0) mg/dL Influenza Type A RNA (NEGATIVE) Influenza Type B RNA (NEGATIVE) SARS-CoV-2 RNA (SOTERO) (NEGATIVE) Med Orders - Current: Current Medications Acetaminophen (Acetaminophen 325 Mg Tab) 650 mg PO Q4H PRN PRN Reason: Pain (Mild 1-3)/fever Last Admin: 05/21/20 00:05 Dose: 650 mg Documented by: Bisacodyl (Bisacodyl 5 Mg Tab) 5 mg PO DAILY PRN PRN Reason: Constipation Docusate Sodium (Docusate Sodium 100 Mg Cap) 100 mg PO BID PRN PRN Reason: Constipation Enoxaparin Sodium (Enoxaparin 40 Mg/0.4 Ml Syringe) 40 mg SUBCUT DAILY [facility] Last Admin: 05/21/20 09:50 Dose: 40 mg Documented by: Lorazepam (Lorazepam 0.5 Mg Tab) 0 mg PO TITRATE PRN; Protocol PRN Reason: alcohol withdrawal Multivitamins (Multivitamins,Therapeutic Tab) 1 each PO DAILY [facility] Last Admin: 05/21/20 09:49 Dose: 1 each Documented by: Ondansetron HCl (Ondansetron 4 Mg/2 Ml Sdv) 4 mg IVPUSH Q6H PRN PRN Reason: Nausea/Vomiting Pantoprazole Sodium (Pantoprazole 40 Mg Vial) 40 mg IVPUSH Q12HR [facility] Last Admin: 05/21/20 09:49 Dose: 40 mg Documented by: Pantoprazole Sodium (Pantoprazole 40 Mg Tab.Cr) 40 mg PO DAILY [facility] Phenytoin Sodium (Phenytoin 100 Mg Cap.Er) 100 mg PO TID [facility] Thiamine HCl (Thiamine 100 Mg Tab) 100 mg PO DAILY [facility] Last Admin: 05/21/20 09:49 Dose: 100 mg Documented by: Discontinued Medications Multivitamins/Minerals 10 ml/Folic Acid 1 mg/ Thiamine HCl 100 mg/ Lactated Ringer's 1,011.2 mls @ 999 mls/hr IV ONETIME ONE Stop: 05/20/20 22:05 Last Admin: 05/20/20 21:15 Dose: 999 mls/hr Documented by: Phenytoin Sodium 1,000 mg/ (Sodium Chloride) 120 mls @ 240 mls/hr IV ONETIME ONE Stop: 05/20/20 22:00 Last Admin: 05/20/20 22:40 Dose: 240 mls/hr Documented by: Sodium Chloride (Normal Saline) 1,000 mls @ 125 mls/hr IV ASDIRECTED [facility] Last Admin: 05/21/20 08:16 Dose: 125 mls/hr Documented by: Phenytoin Sodium (Phenytoin 50 Mg Tab.Chew) 600 mg PO TID [facility] Last Admin: 05/21/20 10:19 Dose: Not Given Documented by: Phenytoin Sodium (Phenytoin 100 Mg Cap.Er) 300 mg PO ONETIME ONE Stop: 05/21/20 11:16 Last Admin: 05/21/20 11:33 Dose: 300 mg Documented by: - Exam Quality Assessment: Denies: Supplemental Oxygen General: Reports: Alert, Oriented, Cooperative HEENT: Reports: EOMI Lungs: Reports: Clear to Auscultation, Normal Respiratory Effort Cardiovascular: Reports: Regular Rate, Regular Rhythm GI/Abdominal Exam: Soft, Non-Tender Extremities: Normal Inspection Skin: Reports: Intact Neurological: Reports: Normal Gait Psy/Mental Status: Reports: Normal Affect, Normal Mood *Q Meaningful Use (DIS) - VTE *Q VTE Anticoagulation Contraindications: Med/TX Not Indicated/Need
[2020-05-22] MEDS ORDERED: Pantoprazole 40 MG Tab.CR PO SCH (09:00)
== END 2020-05-21 15:25 | disposition home or self-care (01) ==
LOC: DL.ED 21:07 → DL.MS 22:27
PROVIDERS: ADMIT Internal Medicine; ATTEND Internal Medicine
DX: R56.9 Unspecified convulsions (principal); M79.601 Pain in right arm; M25.562 Pain in left knee; W19.XXXA Unspecified fall, initial encounter; Z20.822 Contact with and (suspected) exposure to COVID-19
CPT/HCPCS: 0240U; 36415; 70450; 71250; 72125; 73020; 74176; 80053; 80185; 80305; 80307; 81003; 83735; 85025; 85610; 86140; 93005; A9270; C9113; J1165; J1650; J3411; J7030; J7120; 93010; 96365; 96367; 96372; 96375; 99217; 99219; 99284; 99285-25; G0378; J3490

== ENCOUNTER 2020-06-27 17:09 | Emergency (ER) | payer MEDICAID ==
[2020-06-27 16:12] VITALS: BP 152/89; PULSE 54
--- NOTE | 2020-06-27 16:17 | EDM.PDOC ---
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 closed fracture Fracture of T4 vertebra Qualifiers: Encounter type: initial encounter Fracture type: closed Fracture morphology: unspecified fracture morphology Qualified Code(s): S22.049A - Unspecified fracture of fourth thoracic vertebra, initial encounter for closed fracture - Discharge Information *PRESCRIPTION DRUG MONITORING PROGRAM REVIEWED*: Not Applicable *COPY OF PRESCRIPTION DRUG MONITORING REPORT IN PATIENT DANNIE: Not Applicable Referrals: PCP,None [Primary Care Provider] - Forms: Interfacility Transfer ISABELL
[~2020-06-27 17:09] MED LIST changes: +Iopamidol 612 MG/ML 100 ML Bottle IVPUSH ONE; -MVI, Adult with Vitamin K 10 ML, Folic Acid 1 MG, Thiamine 100 MG in Lactated Ringers 1... IV ONE; +MVI, Adult with Vitamin K 10 ML, Thiamine 100 MG, Folic Acid 1 MG in Lactated Ringers 1... IV ONE
--- NOTE | 2020-06-27 17:19 | CT ---
PROCEDURE INFORMATION: Exam: CT Chest With Contrast; Diagnostic Exam date and time: 06/27/2020 4:35 PM Age: 50 years old Clinical indication: Other: Pain; Additional info: Trauma; Fall from balcony while intoxicated (8 ft) TECHNIQUE: Imaging protocol: Diagnostic computed tomography of the chest with contrast. Radiation optimization: All CT scans at this facility use at least one of these dose optimization techniques: automated exposure control; mA and/or kV adjustment per patient size (includes targeted exams where dose is matched to clinical indication); or iterative reconstruction. Contrast material: [id number]; Contrast volume: 100 ml; Contrast route: INTRAVENOUS (IV); COMPARISON: CT Chest Abdomen Pelvis wo Cont 05/20/2020 9:40 PM FINDINGS: Lungs: Unremarkable. No consolidation. No masses. Pleural spaces: Unremarkable. No pneumothorax. No pleural effusion. Heart: Unremarkable. No cardiomegaly. No pericardial effusion. Aorta: Unremarkable. No aortic aneurysm. Lymph nodes: Unremarkable. No enlarged lymph nodes. Bones/joints: A moderately displaced fracture of the right clavicle is identified. Soft tissues: Unremarkable. IMPRESSION: Moderately offset right mid clavicle fracture present. Aside from the right clavicle fracture, no acute intrathoracic injury identified. PROCEDURE INFORMATION: Exam: CT Abdomen And Pelvis With Contrast Exam date and time: 06/27/2020 4:35 PM Age: 50 years old Clinical indication: Other: Pain; Additional info: Trauma; Fall from balcony while intoxicated (8 ft) TECHNIQUE: Imaging protocol: Computed tomography of the abdomen and pelvis with contrast. Radiation optimization: All CT scans at this facility use at least one of these dose optimization techniques: automated exposure control; mA and/or kV adjustment per patient size (includes targeted exams where dose is matched to clinical indication); or iterative reconstruction. Contrast material: [id number]; Contrast volume: 100 ml; Contrast route: INTRAVENOUS (IV); COMPARISON: CT Chest Abdomen Pelvis wo Cont 05/20/2020 9:40 PM FINDINGS: Liver: Normal. No mass. Gallbladder and bile ducts: Normal. No calcified stones. No ductal dilation. Pancreas: Normal. No ductal dilation. Spleen: Normal. No splenomegaly. Adrenal glands: Normal. No mass. Kidneys and ureters: Normal. No hydronephrosis. Stomach and bowel: Unremarkable. No obstruction. No mucosal thickening. Appendix: No evidence of appendicitis. Intraperitoneal space: Unremarkable. No free air. No significant fluid collection. Vasculature: Unremarkable. No abdominal aortic aneurysm. Lymph nodes: Unremarkable. No enlarged lymph nodes. Urinary bladder: Unremarkable as visualized. Reproductive: Unremarkable as visualized. Bones/joints: Unremarkable. No acute fracture. Soft tissues: Unremarkable. IMPRESSION: Normal appearance of the abdomen pelvis. No acute visceral injury, mass or free fluid present.
--- NOTE | 2020-06-27 17:20 | CT ---
PROCEDURE INFORMATION: Exam: CT Thoracic Spine Without Contrast Exam date and time: 06/27/2020 4:35 PM Age: 50 years old Clinical indication: Other: Pain; Additional info: Fall from 8 ft balcony onto back TECHNIQUE: Imaging protocol: Computed tomography images of the thoracic spine without contrast. Radiation optimization: All CT scans at this facility use at least one of these dose optimization techniques: automated exposure control; mA and/or kV adjustment per patient size (includes targeted exams where dose is matched to clinical indication); or iterative reconstruction. COMPARISON: No relevant prior studies available. FINDINGS: Vertebrae: No acute fracture. Normal alignment. T1-T2: No significant disc protrusion. No severe spinal canal stenosis. No significant neural foraminal narrowing. T2-T3: No significant disc protrusion. No severe spinal canal stenosis. No significant neural foraminal narrowing. T3-T4: No significant disc protrusion. No severe spinal canal stenosis. No significant neural foraminal narrowing. T4-T5: No significant disc protrusion. No severe spinal canal stenosis. No significant neural foraminal narrowing. T5-T6: No significant disc protrusion. No severe spinal canal stenosis. No significant neural foraminal narrowing. T6-T7: No significant disc protrusion. No severe spinal canal stenosis. No significant neural foraminal narrowing. T7-T8: No significant disc protrusion. No severe spinal canal stenosis. No significant neural foraminal narrowing. T8-T9: No significant disc protrusion. No severe spinal canal stenosis. No significant neural foraminal narrowing. T9-T10: No significant disc protrusion. No severe spinal canal stenosis. No significant neural foraminal narrowing. T10-T11: No significant disc protrusion. No severe spinal canal stenosis. No significant neural foraminal narrowing. T11-T12: No significant disc protrusion. No severe spinal canal stenosis. No significant neural foraminal narrowing. T12-L1: No significant disc protrusion. No severe spinal canal stenosis. No significant neural foraminal narrowing. IMPRESSION: Unremarkable thoracic spine.
--- NOTE | 2020-06-27 17:22 | CT ---
CT HEAD/FACIAL: 06/27/2020 4:40 PM PROVIDED CLINICAL HISTORY: Other: Pain; Additional info: Fall from 8 ft balcony onto back TECHNIQUE: Noncontrast axial head and facial CT scan. Coronal and sagittal reformatted images are submitted. All CT scans at this facility use at least one of these dose optimization techniques: automated exposure control; mA and/or kV adjustment per patient size (includes targeted exams where dose is matched to clinical indication); or iterative reconstruction. COMPARISON: Head CT scan dated 05/20/2020 FINDINGS: No abnormal foci of altered attenuation within the cerebral or cerebellar parenchyma. No intracranial mass lesion or evidence for acute territorial ischemia. Again demonstrated is symmetric enlargement of the frontoparietal sulci bilaterally, consistent with early cerebral cortical atrophy. The ventricles and remaining sulci are otherwise within normal limits for age, without midline shift or hydrocephalus. No abnormal extraaxial fluid or air collection; no intracranial hemorrhage. No acute bony trauma, but an old nasal fracture deformity is again demonstrated. The paranasal sinuses are clear, without fluid or mucosal thickening. The orbits, infratemporal fossae, mastoid air cells, skull, scalp, and visualized portions of the mandible are unremarkable. IMPRESSION: --Early cerebral cortical atrophy and old nasal fracture deformity again demonstrated. --Otherwise negative noncontrast head and facial CT scan.
[2020-06-27 17:39] LABS: ANION GAP 15.9 mEq/L (7-13); CHLORIDE,CL 109 mmol/L (98-107); SODIUM,NA 147 mmol/L (136-145)
--- NOTE | 2020-06-27 17:48 | CT ---
PROCEDURE INFORMATION: Exam: CT Cervical Spine Without Contrast Exam date and time: 06/27/2020 4:40 PM Age: 50 years old Clinical indication: Other: Pain; Additional info: Fall from 8 ft balcony onto back TECHNIQUE: Imaging protocol: Computed tomography images of the cervical spine without contrast. Coronal and sagittal reformatted images are submitted. Radiation optimization: All CT scans at this facility use at least one of these dose optimization techniques: automated exposure control; mA and/or kV adjustment per patient size (includes targeted exams where dose is matched to clinical indication); or iterative reconstruction. COMPARISON: CT Cervical Spine 05/20/2020 FINDINGS: Mild to moderate cervical spine degenerative changes are again demonstrated, worst at the C5-C6 level, where there is associated chronic spinal stenosis. Bony alignment is anatomic, and the vertebral body heights are maintained. No acute cervical spinal fracture or subluxation. However, there is an acute comminuted and displaced fracture of the medial third of the right clavicle, with adjacent soft tissue hemorrhage. There are also acute mildly displaced lateral right 3rd, 4th, and partially visualized 5th rib fractures, acute mildly displaced medial right 2nd and 3rd rib fractures, acute nondisplaced right T3 and T4 transverse process fractures, and a partially imaged acute nondisplaced right scapular fracture. In addition, only demonstrated on an AP electric melt operator view is a fracture deformity of the distal right clavicle, and remote postop changes with extensive proximal and mid right humeral plate and screw fixation hardware. Otherwise, the cervical paraspinal structures are unremarkable. IMPRESSION: No acute cervical spinal fracture or subluxation, but there is an acute comminuted and displaced fracture of the medial third of the right clavicle, acute mildly displaced lateral right 3rd, 4th, and partially visualized 5th rib fractures, acute mildly displaced medial right 2nd and 3rd rib fractures, acute nondisplaced right T3 and T4 transverse process fractures, a partially imaged acute nondisplaced right scapular fracture, and a separate fracture of the distal right clavicle.
--- NOTE | 2020-06-27 18:06 | CR ---
PROCEDURE INFORMATION: Exam: XR Right Shoulder Exam date and time: 06/27/2020 5:59 PM Age: 50 years old Clinical indication: Other: Pain; Additional info: Fall from 8 ft balcony onto back TECHNIQUE: Imaging protocol: XR Right shoulder. Views: 2 or more views. COMPARISON: CR Shoulder 1V Rt 05/20/2020 10:05 PM FINDINGS: Bones/joints: Multiple views of the right humerus demonstrate abutment plate and multiple orthopedic screws traversing a proximal humerus fracture. The fracture appears to be well healed. There is anatomic alignment. No acute fracture identified. Soft tissues: Normal. IMPRESSION: Postoperative change within the right proximal humerus. No acute fracture identified.
[2020-06-27] MEDS ORDERED: Lidocaine 2% Jelly 10 ML Urojet MUCMEM ONE (18:14)
== END 2020-06-27 18:50 ==
LOC: DL.ED 17:09
DX: S22.41XA Multiple fractures of ribs, right side, initial encounter for closed fracture (principal); S42.101A Fracture of unspecified part of scapula, right shoulder, initial encounter for closed fracture; S42.031A Displaced fracture of lateral end of right clavicle, initial encounter for closed fracture; S22.039A Unspecified fracture of third thoracic vertebra, initial encounter for closed fracture; S22.049A Unspecified fracture of fourth thoracic vertebra, initial encounter for closed fracture; F10.129 Alcohol abuse with intoxication, unspecified; W17.89XA Other fall from one level to another, initial encounter
CPT/HCPCS: 36415; 70450; 71260; 72125; 72128; 73030; 74177; 80053; 80305; 80307; 81001; 83605; 83735; 84484; 85025; 86140; 93005; 96365; 99285; J3411; J7120; Q9967; 93010; J3490

== ENCOUNTER 2020-07-02 08:48 | Inpatient (IN) | payer MEDICAID ==
[2020-07-02] MEDS ORDERED: Non-Formulary Medication 1 Each (Nicotine Polacrilex [Nicotine Lozenge] 2 MG Lozenge) PO PRN (13:55)
[2020-07-02] MEDS: Gabapentin 100 MG Cap PO SCH ×2 (14:51→20:04)
[2020-07-02] MEDS: oxyCODONE 5 MG Tab PO PRN ×2 (14:51→20:57)
[2020-07-02] MEDS: Phenytoin 100 MG Cap.ER PO SCH ×2 (14:53→20:04)
--- NOTE | 2020-07-02 18:08 | PCM.HP ---
H&P History of Present Illness - General Date of Service: 07/02/20 Admit Problem/Dx: Admission Diagnosis/Problem Admission Diagnosis/Problem Fracture of clavicle - History of Present Illness Initial Comments - Free Text/Narative: 50M w/ pmh alcohol abuse, recent fall off balcony while intoxicated, resultant TBI, T3-4 transverse process fxt, R scapular fxt, R clavicular fxt, R 2nd and 3rd medial rib fxt, R 3rd, 4th and 5th lateral rib fxt, all treated non- operatively transferred to for Swing Bed. Apart from right chest pain pt denies any symptoms. Right Lower Chest Pain Score (Numeric/FACES): 9 Right Clavicle Pain Score (Numeric/FACES): 9 - Related Data Allergies/Adverse Reactions: Allergies Allergy/AdvReac Type Severity Reaction Status Date / Time No Known Allergies Allergy Verified 07/02/20 10:00 Home Medications: Home Meds Phenytoin Sodium Extended [Dilantin] 100 mg PO TID 15 Days #45 05/21/20 [Rx] Acetaminophen [Pain Relief] 650 mg PO Q4HR PRN 07/02/20 [History] Ferrous Gluconate 324 mg PO WITHBREAKFAST 07/02/20 [History] Gabapentin [Neurontin] 100 mg PO TID 07/02/20 [History] Ibuprofen 400 mg PO Q6HR PRN 07/02/20 [History] Nicotine Polacrilex [Nicotine Lozenge] 1 lozenge PO .Q1HR PRN 07/02/20 [History] Vitamin B Complex [B Complex] 1 tab PO DAILY 07/02/20 [History] oxyCODONE 5 mg PO Q6HR PRN 07/02/20 [History] oxyCODONE 10 mg PO Q6HR PRN 07/02/20 [History] Past Medical History - Past Health History Medical/Surgical History: Denies Medical/Surgical History Musculoskeletal History: Reports: Fracture, Other (See Below) Other Musculoskeletal History: T3 and T4 fractures Right Clavicle and right ribs Neurological History: Reports: Seizure Psychiatric History: Reports: Addiction - Past Surgical History Musculoskeletal Surgical History: Reports: Shoulder Surgery Social & Family History - Family History Family Medical History: No Pertinent Family History - Tobacco Use Tobacco Use Status *Q: Current Some Day Tobacco User Years of Tobacco use: 3 Packs/Tins Daily: 0.2 Tobacco Use Comment: Pt stated that one pack will last him about a month Second Hand Smoke Exposure: No - Caffeine Use Caffeine Use: Reports: Coffee, Soda, Tea Other Caffeine Use: unable to obtain - Recreational Drug Use Recreational Drug Use: No - Living Situation & Occupation Living situation: Reports: with Family Occupation: Unemployed H&P Review of Systems - Review of Systems: Review Of Systems: See Below General: Denies: Fever, Chills HEENT: Denies: Headaches Pulmonary: Denies: Shortness of Breath, Wheezing, Cough, Sputum Cardiovascular: Reports: Chest Pain (right sided) Gastrointestinal: Denies: Abdominal Pain, Diarrhea Genitourinary: Denies: Dysuria Musculoskeletal: Denies: Neck Pain Skin: Denies: Jaundice Psychiatric: Denies: Confusion, Depression Neurological: Denies: Dizziness Hematologic/Lymphatic: Denies: Easy Bleeding Exam - Exam Exam: See Below - Vital Signs Vital Signs: Last Vital Signs Temp 98.2 F 07/02/20 13:51 Pulse 55 L 07/02/20 13:51 Resp 20 07/02/20 13:51 BP 138/79 07/02/20 13:51 Pulse Ox 97 07/02/20 13:51 Weight: 162 lb - Exam Quality Assessment: No: Supplemental Oxygen General: Alert, Oriented, Cooperative HEENT: Conjunctiva Clear Neck: Supple Lungs: Clear to Auscultation, Normal Respiratory Effort Cardiovascular: Regular Rate, Regular Rhythm GI/Abdominal Exam: Normal Bowel Sounds, Soft, Non-Tender, No Distention Back Exam: Normal Inspection Extremities: No Pedal Edema Skin: Warm, Dry, Intact Neurological: Cranial Nerves Intact Neuro Extensive - Mental Status: Alert, Oriented x3 Neuro Extensive - Motor, Sensory, Reflexes: No: Tremor Psychiatric: Alert, Normal Affect, Normal Mood Problem List Initiated/Reviewed/Updated: Yes Orders Last 24hrs: Active Orders 24 hr Category Date Time Status Patient Status [ADT] Routine ADT 07/02/20 13:51 Active Antiembolic Devices [RC] PER UNIT ROUTINE Care 07/02/20 13:54 Active Oxygen Therapy [RC] PRN Care 07/02/20 13:51 Active Up ad Jada [RC] ASDIRECTED Care 07/02/20 13:51 Active VTE/DVT Education [RC] , Care 07/02/20 13:51 Active Vital Signs [RC] 08,20 Care 07/02/20 13:51 Active OT Evaluation and Treatment [CONS] Routine Cons 07/02/20 13:51 Active PT Evaluation and Treatment [CONS] Routine Cons 07/02/20 13:51 Active Regular Diet [DIET] Diet 07/02/20 Dinner Active Acetaminophen [TylenoL] Med 07/02/20 13:51 Active 650 mg PO Q4H PRN Enoxaparin [Lovenox] Med 07/03/20 09:00 Active 40 mg SUBCUT DAILY Ferrous Sulfate Med 07/03/20 08:00 Active 325 mg PO WITHBREAKFAST Gabapentin [Neurontin] Med 07/02/20 14:00 Active 100 mg PO TID Ibuprofen [Motrin] Med 07/02/20 13:55 Active 400 mg PO Q6HR PRN Nicotine Polacrilex [Nicotine Lozenge] Med 07/02/20 13:55 Pending 1 lozenge PO .Q1HR PRN Phenytoin Med 07/02/20 14:00 Active 100 mg PO TID Vitamin B Complex Med 07/03/20 09:00 Active 1 each PO DAILY oxyCODONE Med 07/02/20 13:55 Active 5 mg PO Q6HR PRN Antiembolic Hose [OM.PC] Per Unit Routine Oth 07/02/20 13:53 Ordered Resuscitation Status Routine Resus Stat 07/02/20 13:51 Ordered Medication Orders Acetaminophen (Acetaminophen 325 Mg Tab) 650 mg PO Q4H PRN PRN Reason: Pain (Mild 1-3)/fever Enoxaparin Sodium (Enoxaparin 40 Mg/0.4 Ml Syringe) 40 mg SUBCUT DAILY FLORECITA Ferrous Sulfate (Ferrous Sulfate 325 Mg Tab) 325 mg PO WITHBREAKFAST FLORECITA Gabapentin (Gabapentin 100 Mg Cap) 100 mg PO TID FLORECITA Last Admin: 07/02/20 14:51 Dose: 100 mg Documented by: JOHANA Ibuprofen (Ibuprofen 400 Mg Tab) 400 mg PO Q6HR PRN PRN Reason: Pain (moderate 4-6) Non-Formulary Medication (Nicotine Polacrilex [Nicotine Lozenge]) 1 lozenge PO .Q1HR PRN PRN Reason: smoking cessation Oxycodone HCl (Oxycodone 5 Mg Tab) 5 mg PO Q6HR PRN PRN Reason: Pain (severe 7-10) Last Admin: 07/02/20 14:51 Dose: 5 mg Documented by: JOHANA Phenytoin Sodium (Phenytoin 100 Mg Cap.Er) 100 mg PO TID FLORECITA Last Admin: 07/02/20 14:53 Dose: 100 mg Documented by: JOHANA Vitamin B Complex (Vitamin B Complex Cap) 1 each PO DAILY [facility] Assessment/Plan Comment:: #T3-4 TV process fxt / R scapular / R clavicular / R 2-5th rib fxt - treated non operatively - IS - pain control - rehab mgt per PT/OT PPX - LMWH
[2020-07-02] MEDS: Ibuprofen 400 MG Tab PO PRN (20:03)
[2020-07-02] MEDS: Acetaminophen 325 MG Tab PO PRN (23:09)
[2020-07-03] MEDS: oxyCODONE 5 MG Tab PO PRN ×3 (03:33→22:26)
[2020-07-03] MEDS: Acetaminophen 325 MG Tab PO PRN ×3 (08:39→18:48)
[2020-07-03] MEDS: Gabapentin 100 MG Cap PO SCH ×3 (08:39→22:26)
[2020-07-03] MEDS: Vitamin B Complex Cap PO SCH (08:39)
[2020-07-03] MEDS: Ferrous Sulfate 325 MG Tab PO SCH (08:39)
[2020-07-03] MEDS: Phenytoin 100 MG Cap.ER PO SCH ×3 (08:39→22:00)
[2020-07-03] MEDS: Enoxaparin 40 MG/0.4 ML Syringe SUBCUT SCH (08:40)
[2020-07-03] MEDS: Lidocaine 5% 700 MG Patch TRDERM SCH (11:12)
[2020-07-03] MEDS: Ibuprofen 400 MG Tab PO PRN (14:24)
[2020-07-03] MEDS: Docusate Sodium 100 MG Cap PO SCH (22:26)
[2020-07-04] MEDS: oxyCODONE 5 MG Tab PO PRN ×3 (04:51→21:18)
[2020-07-04] MEDS: Ibuprofen 400 MG Tab PO PRN (07:52)
[2020-07-04] MEDS: Ferrous Sulfate 325 MG Tab PO SCH (07:54)
[2020-07-04] MEDS: Vitamin B Complex Cap PO SCH (07:59)
[2020-07-04] MEDS: Gabapentin 100 MG Cap PO SCH ×3 (07:59→21:17)
[2020-07-04] MEDS: Enoxaparin 40 MG/0.4 ML Syringe SUBCUT SCH (07:59)
[2020-07-04] MEDS: Phenytoin 100 MG Cap.ER PO SCH ×3 (07:59→21:17)
[2020-07-04] MEDS: Docusate Sodium 100 MG Cap PO SCH ×2 (07:59→21:17)
[2020-07-04] MEDS: Lidocaine 5% 700 MG Patch TRDERM SCH (09:37)
[2020-07-04] MEDS: Acetaminophen 325 MG Tab PO PRN (18:15)
[2020-07-05] MEDS: oxyCODONE 5 MG Tab PO PRN ×2 (10:05→20:54)
[2020-07-05] MEDS: Docusate Sodium 100 MG Cap PO SCH ×2 (10:07→20:55)
[2020-07-05] MEDS: Enoxaparin 40 MG/0.4 ML Syringe SUBCUT SCH (10:07)
[2020-07-05] MEDS: Vitamin B Complex Cap PO SCH (10:07)
[2020-07-05] MEDS: Gabapentin 100 MG Cap PO SCH ×3 (10:07→20:54)
[2020-07-05] MEDS: Ferrous Sulfate 325 MG Tab PO SCH (10:07)
[2020-07-05] MEDS: Phenytoin 100 MG Cap.ER PO SCH ×3 (10:07→20:55)
[2020-07-05] MEDS: Lidocaine 5% 700 MG Patch TRDERM SCH (10:08)
--- NOTE | 2020-07-05 10:56 | PCM.PN ---
- General Info Date of Service: 07/05/20 Subjective Update: C/o pain which is tolerable. Hav - Patient Data Vitals - Most Recent: Last Vital Signs Temp 97.7 F 07/05/20 08:31 Pulse 66 07/05/20 08:31 Resp 20 07/05/20 08:31 BP 131/92 H 07/05/20 08:31 Pulse Ox 98 07/05/20 08:31 Weight - Most Recent: 162 lb I&O - Last 24 Hours: Intake & Output 07/04/20 07/05/20 07/05/20 22:59 06:59 14:59 Intake Total 360 Balance 360 Med Orders - Current: Current Medications Acetaminophen (Acetaminophen 325 Mg Tab) 650 mg PO Q4H PRN PRN Reason: Pain (Mild 1-3)/fever Last Admin: 07/04/20 18:15 Dose: 650 mg Documented by: Docusate Sodium (Docusate Sodium 100 Mg Cap) 100 mg PO BID [facility] Last Admin: 07/05/20 10:07 Dose: 100 mg Documented by: Enoxaparin Sodium (Enoxaparin 40 Mg/0.4 Ml Syringe) 40 mg SUBCUT DAILY [facility] Last Admin: 07/05/20 10:07 Dose: 40 mg Documented by: Ferrous Sulfate (Ferrous Sulfate 325 Mg Tab) 325 mg PO WITHBREAKFAST [facility] Last Admin: 07/05/20 10:07 Dose: 325 mg Documented by: Gabapentin (Gabapentin 100 Mg Cap) 100 mg PO TID [facility] Last Admin: 07/05/20 10:07 Dose: 100 mg Documented by: Ibuprofen (Ibuprofen 400 Mg Tab) 400 mg PO Q6HR PRN PRN Reason: Pain (moderate 4-6) Last Admin: 07/04/20 07:52 Dose: 400 mg Documented by: Lidocaine (Lidocaine 5% 700 Mg Patch) 700 mg TRDERM Q24H [facility] Last Admin: 07/05/20 10:08 Dose: 700 mg Documented by: Miscellaneous Information (Remove Patch *Lidocaine*) 1 ea TRDERM Q24H [facility] Last Admin: 07/04/20 21:22 Dose: 1 ea Documented by: Non-Formulary Medication (Nicotine Polacrilex [Nicotine Lozenge]) 1 lozenge PO .Q1HR PRN PRN Reason: smoking cessation Oxycodone HCl (Oxycodone 5 Mg Tab) 5 mg PO Q6HR PRN PRN Reason: Pain (severe 7-10) Last Admin: 07/05/20 10:05 Dose: 5 mg Documented by: Phenytoin Sodium (Phenytoin 100 Mg Cap.Er) 100 mg PO TID [facility] Last Admin: 07/05/20 10:07 Dose: 100 mg Documented by: Senna/Docusate Sodium (Docusate Sodium/Sennosides 50-8.6 Mg Tab) 2 tab PO BEDTIME [facility] Last Admin: 07/04/20 21:18 Dose: 2 tab Documented by: Vitamin B Complex (Vitamin B Complex Cap) 1 each PO DAILY [facility] Last Admin: 07/05/20 10:07 Dose: 1 each Documented by: - Exam Quality Assessment: No: Supplemental Oxygen General: Alert, Oriented HEENT: Pupils Equal Neck: Supple Lungs: Clear to Auscultation Cardiovascular: Regular Rate, Regular Rhythm GI/Abdominal Exam: Normal Bowel Sounds, Soft, Non-Tender, No Distention Extremities: No Pedal Edema, Other (RUE in sling) Skin: Warm, Dry, Intact Wound/Incisions: Healing Well Neurological: No New Focal Deficit Psy/Mental Status: Alert, Normal Affect, Normal Mood Sepsis Event Note - Evaluation Sepsis Screening Result: No Definite Risk - Focused Exam Vital Signs: Vital Signs Temp Pulse Resp BP Pulse Ox 07/05/20 08:31 97.7 F 66 20 131/92 H 98 - Problem List Review Problem List Initiated/Reviewed/Updated: Yes - Plan Plan:: #T3-4 TV process fxt / R scapular / R clavicular / R 2-5th rib fxt - treated non operatively - IS - pain control - rehab mgt per PT/OT PPX - LMWH
[2020-07-05] MEDS: Acetaminophen 325 MG Tab PO PRN (14:06)
[2020-07-05] MEDS: Nicotine 14 MG/24 Hr Patch TRDERM SCH (14:06)
[2020-07-06] MEDS: oxyCODONE 5 MG Tab PO PRN ×3 (05:10→20:04)
[2020-07-06] MEDS: Docusate Sodium 100 MG Cap PO SCH ×2 (10:08→20:03)
[2020-07-06] MEDS: Ferrous Sulfate 325 MG Tab PO SCH (10:08)
[2020-07-06] MEDS: Enoxaparin 40 MG/0.4 ML Syringe SUBCUT SCH (10:09)
[2020-07-06] MEDS: Nicotine 14 MG/24 Hr Patch TRDERM SCH (10:09)
[2020-07-06] MEDS: Vitamin B Complex Cap PO SCH (10:10)
[2020-07-06] MEDS: Phenytoin 100 MG Cap.ER PO SCH ×3 (10:10→20:04)
[2020-07-06] MEDS: Gabapentin 100 MG Cap PO SCH ×3 (10:10→20:03)
[2020-07-06] MEDS: Lidocaine 5% 700 MG Patch TRDERM SCH (10:11)
[2020-07-06] MEDS: Acetaminophen 325 MG Tab PO PRN (10:12)
[2020-07-06 11:46] LABS: C.TRACHOMATIS BY TMA Negative (Negative); N.GONORRHOEAE BY TMA Negative (Negative)
[2020-07-07] MEDS: oxyCODONE 5 MG Tab PO PRN ×3 (05:21→21:00)
[2020-07-07] MEDS: Ferrous Sulfate 325 MG Tab PO SCH (09:28)
[2020-07-07] MEDS: Docusate Sodium 100 MG Cap PO SCH ×2 (09:28→21:00)
[2020-07-07] MEDS: Enoxaparin 40 MG/0.4 ML Syringe SUBCUT SCH (09:29)
[2020-07-07] MEDS: Gabapentin 100 MG Cap PO SCH ×3 (09:29→21:00)
[2020-07-07] MEDS: Phenytoin 100 MG Cap.ER PO SCH ×3 (09:30→21:00)
[2020-07-07] MEDS: Vitamin B Complex Cap PO SCH (09:30)
[2020-07-07] MEDS: Acetaminophen 325 MG Tab PO PRN ×2 (09:31→14:56)
[2020-07-07] MEDS: Nicotine 14 MG/24 Hr Patch TRDERM SCH (09:33)
[2020-07-07] MEDS: Lidocaine 5% 700 MG Patch TRDERM SCH (09:34)
[2020-07-07] MEDS: Ibuprofen 400 MG Tab PO PRN (19:41)
[2020-07-08] MEDS: oxyCODONE 5 MG Tab PO PRN ×3 (03:51→18:01)
[2020-07-08] MEDS: Gabapentin 100 MG Cap PO SCH ×3 (08:26→20:37)
[2020-07-08] MEDS: Acetaminophen 325 MG Tab PO PRN ×2 (08:26→20:37)
[2020-07-08] MEDS: Phenytoin 100 MG Cap.ER PO SCH ×3 (08:26→20:36)
[2020-07-08] MEDS: Vitamin B Complex Cap PO SCH (08:26)
[2020-07-08] MEDS: Docusate Sodium 100 MG Cap PO SCH ×2 (08:26→20:37)
[2020-07-08] MEDS: Nicotine 14 MG/24 Hr Patch TRDERM SCH (08:28)
[2020-07-08] MEDS: Enoxaparin 40 MG/0.4 ML Syringe SUBCUT SCH (08:28)
[2020-07-08] MEDS: Ferrous Sulfate 325 MG Tab PO SCH (08:28)
[2020-07-08] MEDS: Lidocaine 5% 700 MG Patch TRDERM SCH (08:31)
[2020-07-09] MEDS: Gabapentin 100 MG Cap PO SCH ×3 (08:48→20:39)
[2020-07-09] MEDS: Ferrous Sulfate 325 MG Tab PO SCH (08:48)
[2020-07-09] MEDS: oxyCODONE 5 MG Tab PO PRN ×2 (08:48→20:37)
[2020-07-09] MEDS: Docusate Sodium 100 MG Cap PO SCH ×2 (08:48→20:37)
[2020-07-09] MEDS: Phenytoin 100 MG Cap.ER PO SCH ×3 (08:48→20:39)
[2020-07-09] MEDS: Vitamin B Complex Cap PO SCH (08:48)
[2020-07-09] MEDS: Nicotine 14 MG/24 Hr Patch TRDERM SCH (08:50)
[2020-07-09] MEDS: Lidocaine 5% 700 MG Patch TRDERM SCH (08:50)
[2020-07-09] MEDS: Enoxaparin 40 MG/0.4 ML Syringe SUBCUT SCH (08:51)
[2020-07-09] MEDS: Acetaminophen 325 MG Tab PO PRN (14:57)
[2020-07-10] MEDS: Ferrous Sulfate 325 MG Tab PO SCH (09:55)
[2020-07-10] MEDS: Phenytoin 100 MG Cap.ER PO SCH ×3 (09:55→22:00)
[2020-07-10] MEDS: Gabapentin 100 MG Cap PO SCH ×3 (09:55→22:02)
[2020-07-10] MEDS: oxyCODONE 5 MG Tab PO PRN (09:55)
[2020-07-10] MEDS: Enoxaparin 40 MG/0.4 ML Syringe SUBCUT SCH (09:55)
[2020-07-10] MEDS: Vitamin B Complex Cap PO SCH (09:55)
[2020-07-10] MEDS: Docusate Sodium 100 MG Cap PO SCH ×2 (09:55→22:00)
[2020-07-10] MEDS: Nicotine 14 MG/24 Hr Patch TRDERM SCH (09:56)
[2020-07-10] MEDS: Lidocaine 5% 700 MG Patch TRDERM SCH (09:57)
[2020-07-10] MEDS: Acetaminophen 325 MG Tab PO PRN (13:34)
[2020-07-10] MEDS: Ibuprofen 400 MG Tab PO PRN (22:00)
[2020-07-11] MEDS: Nicotine 14 MG/24 Hr Patch TRDERM SCH (09:50)
[2020-07-11] MEDS: Docusate Sodium 100 MG Cap PO SCH ×2 (09:51→20:58)
[2020-07-11] MEDS: Gabapentin 100 MG Cap PO SCH ×3 (09:51→20:59)
[2020-07-11] MEDS: oxyCODONE 5 MG Tab PO PRN ×2 (09:51→15:58)
[2020-07-11] MEDS: Phenytoin 100 MG Cap.ER PO SCH ×3 (09:51→20:59)
[2020-07-11] MEDS: Ferrous Sulfate 325 MG Tab PO SCH (09:51)
[2020-07-11] MEDS: Lidocaine 5% 700 MG Patch TRDERM SCH (09:51)
[2020-07-11] MEDS: Vitamin B Complex Cap PO SCH (09:51)
[2020-07-11] MEDS: Enoxaparin 40 MG/0.4 ML Syringe SUBCUT SCH (09:52)
[2020-07-11 11:51] LABS: ANION GAP 14.6 mEq/L (7-13); CHLORIDE,CL 100 mmol/L (98-107); SODIUM,NA 139 mmol/L (136-145)
[2020-07-11] MEDS: Ibuprofen 400 MG Tab PO PRN (20:58)
--- NOTE | 2020-07-12 08:20 | PCM.SN.2 ---
- Free Text/Narrative Note: START OF DOCTOR [facility]OL[facility] PROGRESS NOTE Subjective: The patient complains of low-grade diffuse pain from the sites of his multiple traumas however he states that the pain is well controlled. The patient denies fever, rigors, nausea, vomiting, cough, wheeze, abdominal pain, chest pain, dyspnea. He states that he is eating well and having normal bowel movements. Indicates that he has been working with physical therapy and Occupational Therapy. I explained to the patient his current medical condition and plan of care and I have answered all of his questions Objective: General: -Alert -No acute distress -No dyspnea -No tachypnea Heart: -Regular rate -Regular rhythm -No murmurs -No gallops -No rubs Lungs: -No wheeze -No rhonchi -No rales Abdomen: -Normal bowel sounds in all four quadrants -No rebound -No guarding -No tenderness Extremities: -2/4 pulse in all four extremities -No clubbing -No cyanosis -No edema Additional Details / Additional Findings / Exceptions / Miscellaneous: Pertinent Laboratory Results / Pertinent Radiology Results / Pertinent Diagnostic Results / Pertinent Vital Signs: Vital signs stable Assessment / Plan: Swing bed status for rehabilitation due to falling off [employer] while intoxicated with resultant traumatic brain injury, T3 and T4 transverse process fractures, right scapular fracture, right clavicular fracture, right second and third medial rib fractures, and right third, fourth, and fifth lateral rib fractures. No surgical intervention was required for any other trauma. Lidocaine 5% patch to be applied to affected area 12 hours daily. Continue as needed analgesia. Continue physical therapy and Occupational Therapy Transaminitis. This appears to be chronic for this patient. Will monitor LFTs periodically History of alcohol use. The patient counseled regarding alcohol cessation Marijuana abuse. The patient will be counseled regarding marijuana cessation Neuropathy. Gabapentin 100 mg p.o. 3 times daily History of seizure. Phenytoin 100 mg p.o. 3 times daily Smoker. Patient counseled regarding smoking cessation. Nicotine patch 14 mg daily Degenerative disc disease Degenerative joint disease Constipation. Colace 100 mg p.o. twice daily plus docusate/senna 2 tabs p.o. nightly Thrombocytosis. Will monitor platelet count intermittently Anemia. Will monitor hemoglobin levels intermittently. Ferritin within normal limits. Iron panel within normal notes. Fecal occult blood pending. Ferrous sulfate 3 2 5 mg p.o. daily DVT prophylaxis. Lovenox 20 mg subcutaneously daily Disposition: END OF DOCTOR EMAM[facility] PROGRESS NOTE
[2020-07-12] MEDS: Lidocaine 5% 700 MG Patch TRDERM SCH (09:34)
[2020-07-12] MEDS: Enoxaparin 40 MG/0.4 ML Syringe SUBCUT SCH (09:35)
[2020-07-12] MEDS: oxyCODONE 5 MG Tab PO PRN ×2 (09:35→21:34)
[2020-07-12] MEDS: Ferrous Sulfate 325 MG Tab PO SCH (09:35)
[2020-07-12] MEDS: Vitamin B Complex Cap PO SCH (09:35)
[2020-07-12] MEDS: Docusate Sodium 100 MG Cap PO SCH ×2 (09:35→21:34)
[2020-07-12] MEDS: Phenytoin 100 MG Cap.ER PO SCH ×3 (09:35→21:33)
[2020-07-12] MEDS: Nicotine 14 MG/24 Hr Patch TRDERM SCH (09:35)
[2020-07-12] MEDS: Gabapentin 100 MG Cap PO SCH ×3 (09:35→21:33)
[2020-07-13 09:19] VITALS: BP 119/81; PULSE 62
--- NOTE | 2020-07-13 09:29 | PCM.SN.2 ---
- Free Text/Narrative Note: START OF DOCTOR [facility] DISCHARGE SUMMARY Date of Admission: July 02, 2020 Date of Discharge: 9:27 AM on July 13, 2020 Primary Diagnosis: Status post swing bed status for rehabilitation due to falling off balcony while intoxicated with resultant traumatic brain injury, T3 and T4 transverse process fractures, right scapular fracture, right clavicular fracture, right second and third medial rib fractures, and right third, fourth, and fifth lateral rib fractures with no surgical intervention required Secondary Diagnosis: Transaminitis, chronic History of alcohol use Marijuana abuse Neuropathy History of seizure Smoker Degenerative's disease Degenerative disease Constipation Thrombocytosis Anemia Consultations: None Condition on Discharge: Stable Disposition: The patient will be vies follow-up with his primary care physician or provider 5 to 7 days post discharge The patient will need referral for alcohol rehabilitation for his history of alcohol use Discharge Medications: Oxycodone 5 mg p.o. every 6 hours as needed pain Nicotine lozenge: 2 mg p.o. hourly as needed nicotine withdrawal Vitamin B complex: 1 tab p.o. daily Phenytoin 100 mg p.o. 3 times daily Gabapentin 100 mg p.o. 3 times daily Ferrous sulfate 324 mg p.o. daily END OF DOCTOR EMAM[facility] DISCHARGE SUMMARY
[2020-07-13] MEDS: Gabapentin 100 MG Cap PO SCH (09:49)
[2020-07-13] MEDS: Docusate Sodium 100 MG Cap PO SCH (09:49)
[2020-07-13] MEDS: oxyCODONE 5 MG Tab PO PRN (09:50)
[2020-07-13] MEDS: Vitamin B Complex Cap PO SCH (09:51)
[2020-07-13] MEDS: Phenytoin 100 MG Cap.ER PO SCH (09:51)
[2020-07-13] MEDS: Lidocaine 5% 700 MG Patch TRDERM SCH (09:52)
[2020-07-13] MEDS: Nicotine 14 MG/24 Hr Patch TRDERM SCH (09:52)
[2020-07-13] MEDS: Enoxaparin 40 MG/0.4 ML Syringe SUBCUT SCH (09:53)
[2020-07-13] MEDS: Ferrous Sulfate 325 MG Tab PO SCH (10:00)
== END 2020-07-13 12:50 | disposition home or self-care (01) | DRG 561 ==
LOC: DL.MS 11:18
PROVIDERS: ADMIT Internal Medicine; ATTEND Internal Medicine
DX: S22.039D Unspecified fracture of third thoracic vertebra, subsequent encounter for fracture with routine healing (principal); S22.049D Unspecified fracture of fourth thoracic vertebra, subsequent encounter for fracture with routine healing; S22.41XD Multiple fractures of ribs, right side, subsequent encounter for fracture with routine healing; S42.001D Fracture of unspecified part of right clavicle, subsequent encounter for fracture with routine healing; S42.101D Fracture of unspecified part of scapula, right shoulder, subsequent encounter for fracture with routine healing; W17.89XD Other fall from one level to another, subsequent encounter; Z79.899 Other long term (current) drug therapy; F17.210 Nicotine dependence, cigarettes, uncomplicated; F12.10 Cannabis abuse, uncomplicated; K59.00 Constipation, unspecified; D47.3 Essential (hemorrhagic) thrombocythemia; D64.9 Anemia, unspecified; G62.9 Polyneuropathy, unspecified; Z87.820 Personal history of traumatic brain injury
CPT/HCPCS: 36415; 80053; 81001; 82728; 83540; 83550; 85025; 87491; 87591; 97110-GP; 97162-GP; 97166-GO; 97530-GO; A9270-GY; J1650